=== PATIENT | male | born 1940 | race Caucasian/White ===

== ENCOUNTER 2024-06-26 17:02 | Observation (INO) | payer MEDICARE, BC, SELFPAY ==
[2024-06-26] VITALS (10 sets, daily range): BP systolic 95–129; BP diastolic 55–92; PULSE 70–77; O2SAT 99; BMI 24.5
--- NOTE | 2024-06-26 12:39 | ED.GENMED ---
History of Present Illness
General
Chief Complaint: Fall
Source: patient
Exam Limitations: none
Time Seen by Provider: 06/26/24 12:09
History of Present Illness
History of Present Illness:
83-year-old male with history of Parkinson's not currently anticoagulated presents from home with frequent falls. He fell earlier this week and was admitted to [facility] for 3 days. He was discharged 2 days ago and yesterday fell in the
tub hitting his head. 5 days ago, he fell on top of his and him told by the sons that his suffered a pelvic fracture due to this fall. They both live at home independently. The sons that are in the room are telling me that they have
been looking for placement. Patient denies any injury from yesterday's fall. He denies chest pain hip pain abdominal pain or shortness of breath but does admit to a head strike. He typically uses a walker to ambulate
Phy Exam
Physical Exam
Physical Exam:
General: Well-appearing male no acute respiratory distress
HEENT: Normocephalic atraumatic
Heart: Regular rate and rhythm
Lungs: Clear no wheeze
Musculoskeletal exam: Spine is nontender good range of motion to the upper and lower extremity
Neurologic: Tremor noted consistent with history of Parkinson's alert and oriented otherwise
Course
Orders/Labs/Results
Orders:
Orders
06/26/24 12:33
CT Head W/o Iv Contrast Urgent
Comment:
Reason For Exam: fall
06/26/24 12:40
Complete Blood Count/With Diff Urgent
Comprehensive Metabolic Panel Urgent
Urinalysis Reflex To Culture Urgent
Date Specimen was Collected: 06/26/24
Time Specimen was Collected: 12:37
06/26/24 13:25
PT Consult [Pt Eval And Treat] Urgent
Activity Level: Ambulate
06/26/24 13:41
Case Management Consult ONCE
Case Management Consult: Discharge Planning
Abnormal Lab Results
06/26/24
12:40
RBC 3.36 L 10^6/uL
(4.70-6.10)
Hgb 10.6 L g/dL
(13.0-18.0)
Hct 31.6 L %
(39.0-52.0)
MCH 31.5 H pg
(27.0-31.0)
Absolute Lymphs (auto) 0.6 L 10^3/uL
(1.2-3.4)
Neutrophils % 80.9 H %
(42.2-75.2)
Lymphocytes % 8.9 L %
(20.5-51.1)
BUN 27 H mg/dl
(9-20)
Total Protein 6.0 L g/dl
(6.3-8.2)
Urine Ketones Trace A
(Negative)
Urine Bilirubin 1+ A
(Negative)
06/26/24 12:40
06/26/24 12:40
Vital Signs
Initial and Last Documented VS:
Initial Vital Signs
Temp Pulse Resp BP Pulse Ox
97.8 F 72 18 104/55 97
06/26/24 11:01 06/26/24 11:01 06/26/24 11:01 06/26/24 11:01 06/26/24 11:01
Last Documented Vital Signs
Temp Pulse Resp BP Pulse Ox
97.8 F 71 16 122/69 99
06/26/24 11:01 06/26/24 16:00 06/26/24 16:00 06/26/24 16:00 06/26/24 16:00
MDM/Problems Addressed
Differential Diagnosis Includes:
Frequent falls lives at home currently independently with his who he fell on 1 week ago. Was recently at [facility] and was discharged pending placement in several weeks. He fell no more than 24 hours after being discharged. Family
accompanies patient. He is no longer safe for him to be at home. CT of the head and get labs and urine today. Case management notified
*Critical Care Note
Total Time (30-74mins, 75-104mins- exclusive of procedures): Not Applicable
Update Note
Update Note:
CT head negative. Patient evaluated by physical therapy and case management. Patient on safe for discharge secondary to frequent falls send his main caregiver is also here with an injury to her right hip. Case management tried to place however
there is no movement on the weekend. Will admit to hospital for further evaluation
ED Attending Note
-
Portions of this chart may have been created with voice recognition software.� Occasional wrong word or��sound alike� substitutions may have occurred due to the inherent limitations of voice recognition software.
Discharge Plan
Departure
Patient Disposition: Admit
Date of Disposition: 06/26/24
Time of Disposition: 16:18
Admit to: Med/Surg
Presentation/result/management discussed w/ accepting MD/DO: Hospitalist
Discharge Problem:
Falls
Prescriptions:
No Action
furosemide [Lasix] 40 mg Tablet
40 mg PO DAILY
atorvastatin 40 mg Tablet
40 mg PO DAILY
ferrous sulfate 325 mg (65 mg iron) Tablet
325 mg PO Q48H
aspirin 81 mg Tablet,Chewable
81 mg PO HS
metoprolol succinate 25 mg Tablet Extended Release 24 Hr
25 mg PO DAILY
finasteride 5 mg Tablet
5 mg PO DAILY
cholecalciferol (vitamin D3) [Vitamin D3] 25 mcg (1,000 unit) Tablet
25 mcg PO DAILY
Eliquis 5 mg Tablet
5 mg PO BID
Slow-Mag
1 tab PO HS
meclizine 25 mg Tablet
25 mg PO Q8H PRN (Reason: dizziness)
losartan 25 mg Tablet
25 mg PO DAILY
acetaminophen 500 mg Capsule
500 mg PO Q6H PRN (Reason: pain)
Referrals:
Cachorro Reilly PA-C [Family Provider] -
Interventions
Interventions:
*Risk Screen - Suicide Last Done: 06/26/24 11:01
*General Assessment Last Done: 06/26/24 11:01
*Neglect/Abuse Screening Last Done: 06/26/24 11:01
ED- Fall Risk Assessment Last Done: 06/26/24 11:44
ED-Musculoskeletal Assessment Last Done: 06/26/24 11:44
ED- Neurological Assessment Last Done: 06/26/24 11:44
ED-Skin Assessment Last Done: 06/26/24 11:44
Discharge Date and Time
Print Language: LIBYAN
[2024-06-26 12:55] LABS: % Basophils 0.6 % (0-2); % Eosinophils 0.6 % (0-6); % Immature Granulocytes 0.4 % (0-0.5); % Lymphocytes 8.9 % (20.5-51.1); % Monocytes 8.6 % (1.7-9.3); % Neutrophils 80.9 % (42.2-75.2); Absolute Lymphocytes 0.6 10^3/uL (1.2-3.4); Absolute Monocytes 0.6 10^3/uL (0.1-0.6); Absolute Neutrophils 5.7 10^3/uL (1.4-6.5); Hematocrit 31.6 % (39.0-52.0); Hemoglobin 10.6 g/dL (13.0-18.0); Mean Corp Hgb Conc. 33.5 g/dL (33.0-37.0); Mean Corpuscular Hgb 31.5 pg (27.0-31.0); Nucleated Red Blood Cells % 0 % (-); Platelet Count 146 10^3/uL (130-400); Red Blood Cell Count 3.36 10^6/uL (4.70-6.10)
[2024-06-26 13:09] LABS: Urine Albumin Trace (Neg - Trace); Urine Bilirubin 1+ (Negative); Urine Character Clear (Clear); Urine Color Yellow; Urine Glucose Negative (Negative); Urine Ketone Trace (Negative); Urine Leukocyte Negative (Negative); Urine Nitrite Negative (Negative); Urine Occult Blood Negative (Negative); Urine Specific Gravity 1.025 (<1.030); Urine Urobilinogen Negative (Neg - 1+)
[2024-06-26 13:13] LABS: ALT (SGPT) 23 U/L (0-50); AST (SGOT) 39 U/L (17-59); Albumin 3.7 g/dl (3.5-5.0); Alkaline Phosphatase 93 U/L (38-126); Blood Urea Nitrogen 27 mg/dl (9-20); Calcium 9.6 mg/dl (8.4-10.2); Carbon Dioxide 27 mmol/L (22-30); Chloride 105 mmol/L (98-107); Glucose 98 mg/dl (70-99); Potassium 4.2 mmol/L (3.5-5.1); Sodium 140 mmol/L (135-145); Total Bilirubin 0.9 mg/dl (0.2-1.3); eGFR 59.63
--- NOTE | 2024-06-26 14:30 | CM ---
Addendum entered by Anayeli Piper RN 06/26/24 18:36:
العراقي given.
Addendum entered by Anayeli Piper RN 06/26/24 15:39:
MARISSA spoke with patient's son who is in agreement with placement. As per son, patient was at [facility]. SNF was recommended, but patient declined. Patient lives with who is is primary caregiver, but he fell on patient and she has a
pelvic fracture and will need SNF. Son is agreeable to placement. Son would prefer both patient's be placed in same facility.
Referrals sent via [facility] to [facility], [facility].
Original Note:
MARISSA spoke with patient. He stated that he was at [facility] and left AMA to home. He is now agreeable to placement. Patient requested that I call his son Tai to discuss discharge planning.
--- NOTE | 2024-06-26 16:27 | HPS.HSE ---
Family Physician
-
Family Physician: NENO COLEY PA-C
Chief Complaint
-
falls
History of Present Illness
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
frequent falls. He fell earlier this week and was admitted to [facility] for 3 days. He was discharged 2 days ago yesterday fell in the tub hitting his head. 5 days ago he fell on top of his . Patient denies any injury from
yesterday's fall. He denies chest pain, hip pain abdominal pain or shortness of breath. He normally uses a walker to ambulate.
He denies any dizziness. He states that he was recently diagnosed with Parkinson's disease.
He denies smoking or alcohol use.
Medical History
Past Medical History
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
Past Surgical History: Reports None
Social History
Tobacco: Non-smoker
Alcohol: None
Drug: None
Family History
Family History: Not pertinent
Allergies / Home Medications
Allergies reflects when Allergies were last updated in [employer].
Home Medications with original date entered in [facility]
Allergy/Medication List:
Allergies
Allergy/AdvReac Type Severity Reaction Status Date / Time
No Known Allergies Allergy Verified 06/26/24 11:43
Home Medications
Slow-Mag 1 tab PO HS Muscle spasms 01/20/23
apixaban 5 mg tablet (Eliquis) 5 mg PO BID Blood clot prevention/tx 01/20/23
aspirin 81 mg chewable tablet 81 mg PO HS Blood clot prevention/tx 01/20/23
atorvastatin 40 mg tablet 40 mg PO DAILY Gastrointestinal issue 01/20/23
cholecalciferol (vitamin D3) 25 mcg (1,000 unit) tablet (Vitamin D3) 25 mcg PO DAILY Supplement 01/20/23
ferrous sulfate 325 mg (65 mg iron) tablet 325 mg PO Q48H Supplement 01/20/23
finasteride 5 mg tablet 5 mg PO DAILY Urinary issue 01/20/23
furosemide 40 mg tablet (Lasix) 40 mg PO DAILY Fluid retention/Swelling 01/20/23
losartan 25 mg tablet 25 mg PO DAILY Blood pressure 01/20/23
meclizine 25 mg tablet 25 mg PO Q8H PRN dizziness 01/20/23
metoprolol succinate 25 mg tablet,extended release 24 hr 25 mg PO DAILY Heart Failure 01/20/23
acetaminophen 500 mg capsule 500 mg PO Q6H PRN pain 01/24/23
Review of Systems
-
History Source: Patient
A 12 point ROS was completed and negative except as noted: Yes
Constitutional: Reports No Symptoms
EENT: Reports No Symptoms
Respiratory: Reports No Symptoms
Cardiac: Reports No Symptoms
Abdomen/GI: Reports No Symptoms
: Reports No Symptoms
Musculoskeletal: Reports No Symptoms
Skin: Reports No Symptoms
Neurological: Reports No Symptoms
Endocrine: Reports No Symptoms
Hematologic/Lymphatic: Reports No Symptoms
Psych: Reports No Symptoms
Physical Exam
Vital Signs
Vital Signs
Temp Pulse Resp BP Pulse Ox
97.8 F 71 16 122/69 99
06/26/24 11:01 06/26/24 16:00 06/26/24 16:00 06/26/24 16:00 06/26/24 16:00
Physical Exam
General: Well Developed, Well Nourished and No Apparent Distress
HEENT: NormoCephalic, Moist mucous membranes and Atraumatic
Respiratory: Clear
Cardiac: S1/S2 and Regular Rhythm; No Murmur or Rub
GI: Soft, Non Tender, Non Distended and Normal Bowel Sounds; No Organomegaly
Rectal: Deferred by Provider
Musculoskeletal: No Clubbing, No Cyanosis and No Edema
Skin: No Rash
Neuro: Nonfocal/grossly intact
Laboratory Results
-
06/26/24 12:40
06/26/24 12:40
Laboratory Results
Total Bilirubin 0.9 mg/dl (0.2-1.3) 06/26/24 12:40
AST 39 U/L (17-59) 06/26/24 12:40
ALT 23 U/L (0-50) 06/26/24 12:40
Alkaline Phosphatase 93 U/L (38-126) 06/26/24 12:40
Data Reviewed
-
Lab Data: Labs Reviewed by me
Old Records: Reviewed
Impression/Plan
-
IMPRESSION:
PLAN:
# Frequent falls/ambulatory dysfunction secondary to Parkinson's disease
-Seen by PT and needs placement but case management cannot place today
-CT head shows no acute abnormality
-check orthostatics and consider stopping lasix
Parkinson's disease
-Apparently recently diagnosed
Paroxysmal atrial fibrillation
-Eliquis stopped a month ago
-Continue metoprolol
CAD
-Continue aspirin, statin
Essential hypertension
-Continue losartan
Sigmoid colon cancer status post splenic flexure resection and intracorporeal anastomosis
Memory impairment
Chronic anemia
-Hemoglobin stable
-Continue ferrous sulfate
BPH
-Continue finasteride
Lower extremity edema
-Continue Lasix
Full code
DVT prophylaxis�SCDs
Regular diet
[2024-06-26] MEDS: FEOSOL 325 MG PO (23:00)
[2024-06-26] MEDS: LOW STRENGTH ASPIRIN 81 MG PO (23:00)
[2024-06-27] MEDS: SYNTHROID 25 MCG PO (06:00)
[2024-06-27 06:58] LABS: % Eosinophils 4.8 % (0-6); % Immature Granulocytes 0.2 % (0-0.5); % Lymphocytes 17.2 % (20.5-51.1); % Monocytes 10.5 % (1.7-9.3); % Neutrophils 66.3 % (42.2-75.2); Absolute Eosinophils 0.2 10^3/uL (0-0.7); Absolute Lymphocytes 0.7 10^3/uL (1.2-3.4); Absolute Monocytes 0.4 10^3/uL (0.1-0.6); Absolute Neutrophils 2.8 10^3/uL (1.4-6.5); Hematocrit 30.2 % (39.0-52.0); Mean Corp Hgb Conc. 33.1 g/dL (33.0-37.0); Mean Corpuscular Hgb 31.2 pg (27.0-31.0); Mean Corpuscular Volume 94.1 fL (80.0-94.0); Mean Platelet Volume 10.2 fL (7.4-10.4); Nucleated Red Blood Cells % 0 % (-); Platelet Count 146 10^3/uL (130-400); Red Blood Cell Count 3.21 10^6/uL (4.70-6.10); Red Cell Dist. Width 13.9 % (11.5-14.5); White Blood Cell Count 4.2 10^3/uL (4.8-10.8)
[2024-06-27 07:41] LABS: ALT (SGPT) 25 U/L (0-50); AST (SGOT) 35 U/L (17-59); Albumin 3.4 g/dl (3.5-5.0); Alkaline Phosphatase 88 U/L (38-126); Blood Urea Nitrogen 23 mg/dl (9-20); Calcium 9.2 mg/dl (8.4-10.2); Carbon Dioxide 27 mmol/L (22-30); Chloride 107 mmol/L (98-107); Estimated Creatinine Clearance 55 ml/min; Glucose 92 mg/dl (70-99); Potassium 4.1 mmol/L (3.5-5.1); Sodium 142 mmol/L (135-145); Total Bilirubin 0.7 mg/dl (0.2-1.3); Total Protein 5.5 g/dl (6.3-8.2); eGFR > 60.00
--- NOTE | 2024-06-27 07:55 | W.PN.HOSP.TC ---
Today's Communication/Plan
-
-Discharge
Assessment / Plan
Assessment / Plan
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
from home for frequent falls. He fell in the tub hitting his head 2 days ago and presented to ER. Head CT showed acute intracranial abnormalities. Additionally, he fell earlier this week and was admitted to [facility] for 3 days. He was
discharged 3 days ago. Patient reported he started to have this balance problem for a few months.
Assessment/Plan:
# Frequent falls/ambulatory dysfunction secondary to Parkinson's disease
-Seen by PT
-CT head shows no acute abnormality
-Check orthostatics and stopped lasix
#Parkinson's disease
-Apparently recently diagnosed
-Gradually worsened especially with his balance
-Has a neurologist for follow up
#Paroxysmal atrial fibrillation
-Eliquis stopped a month ago
-Continue metoprolol
#CAD
-Continue aspirin, statin
#Essential hypertension
-Continue losartan
#Chronic anemia
-Hemoglobin stable
-Continue ferrous sulfate
#BPH
-Continue finasteride
#Lower extremity edema
-Continue Lasix
#DVT prophylaxis
�SCDs
#Sigmoid colon cancer status post splenic flexure resection and intracorporeal anastomosis
#Memory impairment
#Code status: Full code
Anticipated Discharge: Today
Subjective/Interval History
-
Date of Service: June 27, 2024
Patient was seen in his bed full oriented, awake and alert. Denies chest pain, sob, abdominal pain , dysuria, head pain and extremity pain during PE.
Objective Data
-
Labs:
Laboratory Results
06/27/24
06:00
WBC 4.2 L
Hgb 10.0 L
Hct 30.2 L
Plt Count 146
Sodium 142
Potassium 4.1
Chloride 107
Carbon Dioxide 27
BUN 23 H
Creatinine 1.0
Glucose 92
Calcium 9.2
Total Bilirubin 0.7
AST 35
ALT 25
Alkaline Phosphatase 88
Vital Signs:
Vital Signs
Temp Pulse Resp BP Pulse Ox
97.9 F 72 16 122/63 98
06/26/24 23:00 06/26/24 23:00 06/26/24 23:00 06/26/24 23:00 06/26/24 23:00
I&O
06/26/24 06/27/24 06/28/24
06:59 06:59 06:59
Intake Total 240 / 240
Output Total 150 / 150
Balance 90 / 90
Physical Exam
-
General: No Apparent Distress, Comfortable and Conversant
HEENT: Normocephalic and Atraumatic
Respiratory: Clear to Auscultation
Cardiac: Regular Rhythm and S1/S2
GI: Soft, Nontender and Nondistended
Musculoskeletal: No Clubbing, No Cyanosis and No Edema
Skin: Warm
Neuro: Awake, Alert, Oriented and AO x 3
Psych: Calm
[2024-06-27 08:18] VITALS: BP 125/68
[2024-06-27] MEDS: TOPROL XL 25 MG PO (09:15)
[2024-06-27] MEDS: LASIX 40 MG PO (09:15)
[2024-06-27] MEDS: SINEMET 25-100 2 TABLET PO ×2 (09:15→20:03)
[2024-06-27] MEDS: LIPITOR 80 MG PO (09:15)
[2024-06-27] MEDS: PACERONE 200 MG PO (09:15)
[2024-06-27] MEDS: PROSCAR 5 MG PO (09:15)
--- NOTE | 2024-06-27 09:43 | W.PN.UPDATE ---
Update Note
Progress Note Update
I saw and evaluated the patient. I reviewed the resident�s note and agree with findings and plan as documented in the resident�s note.
No acute complaints.
Gen: NAD, Awake and alert
Eyes: EOMI, PERRLA, no scleral icterus.
Neck: supple.
CV: RRR, +S1/S2, no m/r/g.
Resp: CTAB, no rales, wheezes, or rhonchi.
Abd: +BS, soft, NT, ND
Skin: No rashes.
Neuro: CN 2-12 intact, non-focal.
Psych: Normal mood and affect.
CT brain: There are no acute intracranial abnormalities. There is moderate diffuse cortical atrophy with mild nonspecific white matter changes as described above.
Frequent falls/ambulatory dysfunction secondary to Parkinson's disease
-Seen by PT and needs placement but case management cannot place today
-CT head shows no acute abnormality
-orthostatics VS POS, stop lasix
Parkinson's disease, recently diagnosed
Paroxysmal atrial fibrillation: Eliquis stopped a month ago, continue metoprolol
CAD: cont ASA/statin/BB
Essential hypertension: Continue losartan/BB
Sigmoid colon cancer s/p splenic flexure resection and intracorporeal anastomosis
Memory impairment
Chronic anemia: Hb stable, cont ferrous sulfate
BPH: Continue finasteride
Lower extremity edema
-Continue Lasix
FULL/Lovenox
No indication for further hospitalization. Medically cleared for discharge. Case management aware.
Total time spent on d/c = 31 min. This included today's physical exam, progress note, review of laboratory and diagnostic data, preparation of discharge documents and prescriptions, and discussions about the pt's hospital course and discharge plan
with the patient and other program medical director involved in the patient's care.
--- NOTE | 2024-06-27 10:09 | W.DCSUMMARY ---
Addendum entered and electronically signed by Fahad Copeland MD 06/27/24 11:00:
Read, reviewed, and agree. See same day progress note for additional details
Original Note:
Discharge Summary
Discharge Data
Date of Admission: 06/26/24
Date of Discharge: 06/27/24
-
Pending Results: No
Additional Pending Results:
Discharging Physician : Fahad Copeland MD
Disposition : SNF
Principal Discharge diagnosis : Recurrent falls, Parkinson's disease
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
Hospital Course : The patient is a 83-year-old male with history of Parkinson's not currently anticoagulated presented to ER on 06/26/24 from home with frequent falls. He fall down and hit his head to the tub 2 days ago at home and was brought to
the ER. He was obtained head CT at admission which showed: No acute intracranial abnormalities and seen moderate diffuse cortical atrophy with mild nonspecific white matter changes. The patient denies any injury from his recent fall. He denies
chest pain, hip pain, extremity pain, abdominal pain or shortness of breath. No signs of infection was found on Lab studies. ( WBC:4.2, No fever, UA: Nonremarkable ). The patient is planned to be discharged today. He has a neurologist at OP
setting to be followed up for his Parkinson. He was not found have orthostatic hypotension. BP of the patient was on lower side since admission which might be contributing to his frequent falls and therefore his Lasix was stopped.
Important imaging findings :
Head CT 06/26/24
FINDINGS:
There are no acute abnormalities.
There is no intracranial hemorrhage.
There is no edema or mass effect to suggest neoplasm.
There are no abnormal extra-axial fluid collections.
There are no focal areas of diminished density to suggest infarct.
There is diffuse cortical atrophy as evidenced by prominence of the CSF spaces.
Additionally, there are patchy areas of low density in the periventricular and subcortical white matter bilaterally. These white matter changes are nonspecific but given the patient's age are most likely ischemic or degenerative in origin. Such
white matter changes are often seen in older individuals and typically do not correlate clinically.
IMPRESSION:
There are no acute intracranial abnormalities.
There is moderate diffuse cortical atrophy with mild nonspecific white matter changes as described above.
Discharge Plan
-
Patient Disposition: Senior Living/SNF
Discharge Diagnosis/Procedures: recurrent falls, Parkinson's disease
Condition: Good
Diet: Regular
Activity: With assistance
Driving Restrictions: No driving
Referrals:
Cachorro Reilly PA-C [Family Provider] - in less than 1 week
Prescriptions:
Continued
ferrous sulfate 325 mg (65 mg iron) Tablet
325 mg PO Q48H
aspirin 81 mg Tablet,Chewable
81 mg PO HS
metoprolol succinate 25 mg Tablet Extended Release 24 Hr
25 mg PO DAILY
finasteride 5 mg Tablet
5 mg PO DAILY
atorvastatin 80 mg tablet
80 mg PO DAILY
amiodarone 200 mg tablet
200 mg PO DAILY
levothyroxine 25 mcg tablet
25 mcg PO DAILY
carbidopa-levodopa 25-100 mg tablet
2 tab PO BID
Discontinued
furosemide [Lasix] 40 mg Tablet
40 mg PO DAILY
Discharge Orders:
Discharge Patient (As Directed); Ordered 06/27/24
Ordered By: Fahad Copeland
Discharge Date and Time
Print Language: TURKISH
--- NOTE | 2024-06-27 11:16 | CM ---
Patient with Hx Parkinsons with Dx Frequent falls/ambulatory dysfunction. Room air. PT recommends skilled rehab.
SNF referrals reviewed; no accepting SNFs at this time.
Phone call to Tomas Ramirez; left message re; referral.
Phone call to Prabhakar Dudley; left message re; referral.
Spoke with patient, and son Tai (cell [phone]); informed them no response yet from SNF referrals. Explained that under Medicare Observation there is no benefit for SNF for rehab, and unsure UR team will change that Obs status to
Inpatient tomorrow. Patient/family doesn't want to private pay for rehab. Son says that neither son have a first floor setup and can take the patient to their house. Advised son to ask [facility] if he can be admitted there sooner
than 07/11/24.
Message to Resident Debi Pierson requesting OT Eval.
Plan follow up with son tomorrow for d/c planning.
[2024-06-27 15:00] VITALS: BP 128/68
[2024-06-27 16:09] VITALS: BP 128/68; PULSE 70; O2SAT 98
[2024-06-27] MEDS: LOVENOX 40 MG SC (17:25)
[2024-06-27] MEDS: LOW STRENGTH ASPIRIN 81 MG PO (20:03)
[2024-06-27 23:46] VITALS: BP 135/80
[2024-06-28] MEDS: SYNTHROID 25 MCG PO (05:35)
[2024-06-28 07:43] VITALS: BP 122/71
[2024-06-28] MEDS: PROSCAR 5 MG PO (09:14)
[2024-06-28] MEDS: SINEMET 25-100 2 TABLET PO ×2 (09:14→20:40)
[2024-06-28] MEDS: LIPITOR 80 MG PO (09:14)
[2024-06-28] MEDS: TOPROL XL 25 MG PO (09:15)
[2024-06-28] MEDS: PACERONE 200 MG PO (09:15)
--- NOTE | 2024-06-28 09:58 | CM ---
Addendum entered by Esme Latham 06/28/24 16:59:
With son Tai's permission, clinicals faxed to Jeannette at [facility] [phone].
Financial completed by elena Lujan and CM sent via secure email to Lauryn at [facility].
Addendum entered by Esme Latham 06/28/24 14:25:
TC to patients elena Lujan with patient and spouse permission.
Tai agreeable to to filling out financial forms for [facility].
Forms emailed to [email or web address].
Plan: skilled rehab once financials completed, reviewed and accepted.
Addendum entered by Esme Latham 06/28/24 11:12:
Spoke with [facility], financial forms would need to be completed prior to admission and family may have to pay upfront charges for 1-2 weeks.
[facility] unable to accept, and [facility] does not have 2 beds available at this time ( and spouse).
Addendum entered by Esme Latham 06/28/24 11:11:
Spoke with patient bedside.
per patient okay to reach out to son.
Left VM for son Philip/secondary contact. (spouse is primary)
Original Note:
TC to [facility] Case management, Patient was admitted to [facility] 06/22/24, d/c 06/24/24.
CM reached out to [facility] to see if patient qualifies snf waiver, patient is not one of theirs.
PT recommending skilled rehab, family aware if would need to be private pay.
CM will reach out to family.
[2024-06-28 10:56] VITALS: BP 105/64; BP 111/60; BP 113/67
[2024-06-28 11:10] VITALS: BP 105/64; BP 113/67
[2024-06-28 15:06] VITALS: BP 100/58
--- NOTE | 2024-06-28 16:03 | W.PN.HOSP.TC ---
Today's Communication/Plan
-
dc planning - cm aware
Assessment / Plan
Assessment / Plan
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
from home for frequent falls. He fell in the tub hitting his head 2 days ago and presented to ER. Head CT showed acute intracranial abnormalities. Additionally, he fell earlier this week and was admitted to [facility] for 3 days. He was
discharged 3 days ago. Patient reported he started to have this balance problem for a few months.
Assessment/Plan:
# Frequent falls/ambulatory dysfunction secondary to Parkinson's disease
-Seen by PT
-CT head shows no acute abnormality
-Check orthostatics and stopped lasix
#Parkinson's disease
-Apparently recently diagnosed
-Gradually worsened especially with his balance
-Has a neurologist for follow up
#Paroxysmal atrial fibrillation
-Eliquis stopped a month ago
-Continue metoprolol
-Amiodarone
#CAD
-Continue aspirin, statin
#Essential hypertension
-Continue losartan
#Chronic anemia
-Hemoglobin stable
-Continue ferrous sulfate
#BPH
-Continue finasteride
#Lower extremity edema
-Holding Lasix - monitor outpatient
#DVT prophylaxis
-Lovenox
#Sigmoid colon cancer status post splenic flexure resection and intracorporeal anastomosis
#Memory impairment
#Code status: Full code
Anticipated Discharge: Within 24 hours
Subjective/Interval History
-
Date of Service: June 28, 2024
no acute events
Objective Data
-
Vital Signs:
Vital Signs
Temp Pulse Resp BP Pulse Ox
97.4 F 71 17 100/58 99
06/28/24 15:06 06/28/24 15:06 06/28/24 15:06 06/28/24 15:06 06/28/24 15:06
I&O
06/27/24 06/28/24 06/29/24
06:59 06:59 06:59
Intake Total 240 / 240 1590 / 1590
Output Total 150 / 150 575 / 575
Balance 90 / 90 1015 / 1015
Review of Systems
-
History Source: Patient
All other systems: Not reviewed unless documented
Physical Exam
-
General: No Apparent Distress, Comfortable and Conversant
HEENT: Normocephalic and Atraumatic
Respiratory: Clear to Auscultation
Cardiac: Regular Rhythm and S1/S2
GI: Soft, Nontender and Nondistended
Musculoskeletal: No Clubbing, No Cyanosis and No Edema
Skin: Warm
Neuro: Awake, Alert, Oriented and AO x 3
Psych: Calm
Data Reviewed
-
CT Scan: Image personally visualized and interpreted and Report Reviewed by me
Labs: Labs Reviewed by me
[2024-06-28] MEDS: LOVENOX 40 MG SC (17:20)
[2024-06-28] MEDS: FEOSOL 325 MG PO (20:40)
[2024-06-28] MEDS: LOW STRENGTH ASPIRIN 81 MG PO (20:40)
[2024-06-28 23:30] VITALS: BP 113/62
[2024-06-29] MEDS: SYNTHROID 25 MCG PO (05:13)
[2024-06-29 07:56] VITALS: BP 103/62
[2024-06-29] MEDS: LIPITOR 80 MG PO (08:29)
[2024-06-29] MEDS: PACERONE 200 MG PO (08:29)
[2024-06-29] MEDS: SINEMET 25-100 2 TABLET PO ×2 (08:29→20:04)
[2024-06-29] MEDS: PROSCAR 5 MG PO (08:29)
--- NOTE | 2024-06-29 10:47 | CM ---
Addendum entered by Lesley Hidalgo 06/29/24 16:26:
MARISSA received call from son, Tai, reports he spoke with Lauryn at [facility], will plan to arrive at Hospital tomorrow around 9:30 a.m. and transport patient to [facility], [place], private pay. TT to Hospitalist with update.
Addendum entered by Lesley Hidalgo 06/29/24 15:25:
CM spoke with son, Tai, discussed cost of private pay for [facility] short term rehab ($15,000 for patient and spouse). Son inquiring what cost would be if only patient went to [facility], [place], cost $7,700. Son provided with Lauryn ([facility] Admissions)
contact number [phone] to discuss financial. Son reports [facility] came to evaluate patient and patients today, can accept at [facility] on Friday.
Plan; [facility] private pay, likely tomorrow.
Original Note:
CM faxed financials to [facility] for short term rehab, , under review. CM will update family once determined if [facility] is able to offer patient and patient spouse a bed. Plan transition to [facility] after short term rehab, this
Friday. CM will continue to follow for all discharge planning needs.
Plan; financials under review at [facility], awaiting acceptance.
[2024-06-29] MEDS: TOPROL XL 25 MG PO (12:53)
--- NOTE | 2024-06-29 13:57 | W.PN.HOSP.TC ---
Today's Communication/Plan
-
dc planning - cm aware
Assessment / Plan
Assessment / Plan
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
from home for frequent falls. He fell in the tub hitting his head 2 days ago and presented to ER. Head CT showed acute intracranial abnormalities. Additionally, he fell earlier this week and was admitted to [facility] for 3 days. He was
discharged 3 days ago. Patient reported he started to have this balance problem for a few months.
Assessment/Plan:
# Frequent falls/ambulatory dysfunction secondary to Parkinson's disease
-Seen by PT
-CT head shows no acute abnormality
-Check orthostatics and stopped lasix
#Parkinson's disease
-Apparently recently diagnosed
-Gradually worsened especially with his balance
-Has a neurologist for follow up
#Paroxysmal atrial fibrillation
-Eliquis stopped a month ago
-Continue metoprolol
-Amiodarone
#CAD
-Continue aspirin, statin
#Essential hypertension
-Continue losartan
#Chronic anemia
-Hemoglobin stable
-Continue ferrous sulfate
#BPH
-Continue finasteride
#Lower extremity edema
-Holding Lasix - monitor outpatient
#DVT prophylaxis
-Lovenox
#Sigmoid colon cancer status post splenic flexure resection and intracorporeal anastomosis
#Memory impairment
#Code status: Full code
Anticipated Discharge: Within 24 hours
Subjective/Interval History
-
Date of Service: June 29, 2024
No acute events overnight
Objective Data
-
Vital Signs:
Vital Signs
Temp Pulse Resp BP Pulse Ox
97.6 F 72 18 115/62 98
06/29/24 07:56 06/29/24 12:53 06/29/24 07:56 06/29/24 12:53 06/29/24 07:56
I&O
06/28/24 06/29/24 06/30/24
06:59 06:59 06:59
Intake Total 1590 / 1590 420 / 420
Output Total 575 / 575 400 / 400
Balance 1015 / 1015
Review of Systems
-
History Source: Patient
All other systems: Not reviewed unless documented
Data Reviewed
-
CT Scan: Image personally visualized and interpreted and Report Reviewed by me
Labs: Labs Reviewed by me
[2024-06-29 15:48] VITALS: BP 111/64
[2024-06-29] MEDS: LOVENOX 40 MG SC (17:03)
[2024-06-29] MEDS: LOW STRENGTH ASPIRIN 81 MG PO (21:04)
[2024-06-29 23:21] VITALS: BP 120/62
[2024-06-30] MEDS: SYNTHROID 25 MCG PO (06:00)
[2024-06-30 07:25] VITALS: BP 120/62
--- NOTE | 2024-06-30 08:32 | CM ---
CM reviewed chart, patient for discharge today to [facility], private pay. Son will provide transportation to facility this morning. CM will continue to follow for all discharge planning needs.
Plan; [facility], private pay, son to transport.
[facility]:
Report: [phone]
[2024-06-30] MEDS: SINEMET 25-100 2 TABLET PO (09:27)
[2024-06-30] MEDS: PACERONE 200 MG PO (09:27)
[2024-06-30] MEDS: PROSCAR 5 MG PO (09:27)
[2024-06-30] MEDS: LIPITOR 80 MG PO (09:27)
[2024-06-30] MEDS: TOPROL XL 25 MG PO (09:28)
[2024-06-30 11:16] LABS: Hemoglobin 11.7 g/dL (13.0-18.0); Mean Corp Hgb Conc. 32.5 g/dL (33.0-37.0); Mean Corpuscular Hgb 30.9 pg (27.0-31.0); Mean Platelet Volume 10.1 fL (7.4-10.4); Platelet Count 203 10^3/uL (130-400); Red Blood Cell Count 3.79 10^6/uL (4.70-6.10); Red Cell Dist. Width 13.9 % (11.5-14.5); White Blood Cell Count 6.8 10^3/uL (4.8-10.8)
--- NOTE | 2024-06-30 11:25 | W.PN.HOSP.TC ---
Addendum entered and electronically signed by Corona Marsh MD 06/30/24 18:00:
[id number]
Original Note:
Today's Communication/Plan
-
stop lasix; may need midodrine
f/u pcp, neurology outpatient
Assessment / Plan
Assessment / Plan
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
from home for frequent falls. He fell in the tub hitting his head 2 days ago and presented to ER. Head CT showed acute intracranial abnormalities. Additionally, he fell earlier this week and was admitted to [facility] for 3 days. He was
discharged 3 days ago. Patient reported he started to have this balance problem for a few months.
Assessment/Plan:
# Frequent falls/ambulatory dysfunction secondary to Parkinson's disease
-Seen by PT
-CT head shows no acute abnormality
- stopped lasix ; may need midodrine in the future
#Parkinson's disease
-Apparently recently diagnosed
-Gradually worsened especially with his balance
-Has a neurologist for follow up
#Paroxysmal atrial fibrillation
-Eliquis stopped a month ago
-Continue metoprolol
-Amiodarone
#CAD
-Continue aspirin, statin
#Essential hypertension
-Continue losartan
#Chronic anemia
-Hemoglobin stable
-Continue ferrous sulfate
#BPH
-Continue finasteride
#Lower extremity edema
-Holding Lasix - monitor outpatient; may need to restart along with starting midodrine
#DVT prophylaxis
-Lovenox
#Sigmoid colon cancer status post splenic flexure resection and intracorporeal anastomosis
#Memory impairment
#Code status: Full code
More than 30 minutes spent in discharge including
Final examination of the patient
Summarizing hospital stay
Instructions for continuing care to all relevant caregivers
Preparation of discharge records, prescriptions, and referral forms
Total time spent (35 in minutes):
Anticipated Discharge: Today
Subjective/Interval History
-
Date of Service: June 30, 2024
No acute events overnight
Objective Data
-
Labs:
Laboratory Results
06/30/24
08:57
WBC 6.8
Hgb 11.7 L
Hct 36.0 L
Plt Count 203 D
Vital Signs:
Vital Signs
Temp Pulse Resp BP Pulse Ox
97.7 F 72 17 120/62 96
06/30/24 07:25 06/30/24 09:27 06/30/24 07:25 06/30/24 09:27 06/30/24 08:07
I&O
06/29/24 06/30/24 07/01/24
06:59 06:59 06:59
Intake Total 420 / 420 840 / 840
Output Total 400 / 400 450 / 450
Balance 20 / 20 390 / 390
Review of Systems
-
History Source: Patient
All other systems: Not reviewed unless documented
Physical Exam
-
General: No Apparent Distress, Comfortable and Conversant
HEENT: Normocephalic and Atraumatic
Respiratory: Clear to Auscultation
Cardiac: Regular Rhythm and S1/S2
GI: Soft, Nontender and Nondistended
Musculoskeletal: No Clubbing, No Cyanosis and No Edema
Skin: Warm
Neuro: Awake, Alert, Oriented and AO x 3
Psych: Calm
Data Reviewed
-
CT Scan: Image personally visualized and interpreted and Report Reviewed by me
Labs: Labs Reviewed by me
--- NOTE | 2024-06-30 11:28 | W.DS.TRANS ---
DC Summary - Audio Video Tech
-
Discharge Instructions:
Discharge Diagnosis/Procedures recurrent falls, Parkinson's disease
Diet Regular
Activity With assistance
Driving Restrictions No driving
Instructions:
Stand-Alone Forms:
Changes to Home Medications: Yes
Discharge Medications:
DC Medications w/original date entered in [facility]
aspirin 81 mg chewable tablet 81 mg PO HS Blood clot prevention/tx 01/20/23
ferrous sulfate 325 mg (65 mg iron) tablet 325 mg PO Q48H Supplement 01/20/23
finasteride 5 mg tablet 5 mg PO DAILY Urinary issue 01/20/23
metoprolol succinate 25 mg tablet,extended release 24 hr 25 mg PO DAILY Blood Pressure 01/20/23
amiodarone 200 mg tablet 200 mg PO DAILY Heart Disease/Condition 06/26/24
atorvastatin 80 mg tablet 80 mg PO DAILY High Cholesterol 06/26/24
carbidopa 25 mg-levodopa 100 mg tablet 2 tab PO BID Neurological Condition 06/26/24
levothyroxine 25 mcg tablet 25 mcg PO DAILY Thyroid 06/26/24
Home Medication Changes
stop furosemide
Pending Results: No
== END 2024-06-30 10:28 ==
LOC: 4 WEST ACU 17:02
PROVIDERS: Physician Assistant; ADMITTING PHYSICIAN Hospitalist; ATTENDING PHYSICIAN Internal Medicine; EMERGENCY PHYSICIAN Emergency Medicine; FAMILY PHYSICIAN Physician Assistant Medical
DX: R29.6 Repeated falls (principal); G20.A1 Parkinson's disease without dyskinesia, without mention of fluctuations; W18.2XXA Fall in (into) shower or empty bathtub, initial encounter; Y93.E1 Activity, personal bathing and showering; Y92.002 Bathroom of unspecified non-institutional (private) residence as the place of occurrence of the external cause; I95.1 Orthostatic hypotension; Z91.81 History of falling; R60.0 Localized edema; I48.0 Paroxysmal atrial fibrillation; I10 Essential (primary) hypertension; I25.10 Atherosclerotic heart disease of native coronary artery without angina pectoris; R41.3 Other amnesia; D64.9 Anemia, unspecified; N40.0 Benign prostatic hyperplasia without lower urinary tract symptoms; G31.9 Degenerative disease of nervous system, unspecified; Z75.1 Person awaiting admission to adequate facility elsewhere; Z79.82 Long term (current) use of aspirin; Z79.01 Long term (current) use of anticoagulants; Z85.038 Personal history of other malignant neoplasm of large intestine; Z90.49 Acquired absence of other specified parts of digestive tract
CPT/HCPCS: 70450; 80053; 81003; 85025; 85027; 97112; 97116; 97167; 97530; 99284; G0378

== ENCOUNTER 2024-09-08 11:45 | Emergency (ER) | payer MEDICARE, BC, SELFPAY ==
[2024-09-08 11:50] VITALS: BP 115/54
--- NOTE | 2024-09-08 13:14 | ED.GENMED ---
History of Present Illness
General
Chief Complaint: Head Injury
Source: patient, ambulance crew and senior living
Exam Limitations: none
Time Seen by Provider: 09/08/24 13:08
Nursing documentation reviewed up to this point in time: agreed with
History of Present Illness
History of Present Illness:
Patient presents to ED from senior living after falling and hitting the back of his head this morning. Patient denies loss of consciousness. Denies blurred vision. Denies dizziness. Denies headache. Patient also has superficial skin tear of his
left forearm, which occurred during the fall. Patient otherwise has no chest pain, abdominal pain, nor back pain. Denies loss of sensation or weakness. Patient unfortunately states that he does fall frequently, due to balance issues.
Review of Systems
Review of Systems
Allergies reviewed?: Yes
All Other Systems: ROS reviewed and negative except as documented in HPI and ROS
Constitutional: Reports no symptoms
Respiratory: Reports no symptoms
Cardiac: Reports no symptoms; Denies palpitations or syncope
ABD/GI: Reports no symptoms; Denies nausea or vomiting
Musculoskeletal: Reports no symptoms
Skin: Reports other (Skin tear)
Neurological: Reports no symptoms; Denies dizzy, headache or weakness
Phy Exam
Physical Exam
Physical Exam:
Physical Exam
General: no apparent distress, not acutely ill. afebrile.
Head: nc/at. eomi
Neck: supple. normal range of motion
Heart: s1/s2 regular rate and rhythm, no murmur. equal radial pulses.
Lungs: no acute respiratory distress. clear bilaterally. chest wall nontender to palpation.
Abdomen: normal bowel sounds. not tender.
Neuro: alert and oriented. no focal neurological deficits
Skin: superficial skin tear noted over left mid-forearm, without active bleeding.
Psychiatric: well kept. interactive and cooperative
Extremities: no edema. no calf tenderness.
Course
Orders/Labs/Results
Orders:
Orders
09/08/24 11:51
CT Head W/o Iv Contrast Urgent
Comment:
Reason For Exam: head injury
Vital Signs
Initial and Last Documented VS:
Initial Vital Signs
Temp Pulse Resp BP Pulse Ox
98.2 F 70 18 115/54 97
09/08/24 11:50 09/08/24 11:50 09/08/24 11:50 09/08/24 11:50 09/08/24 11:50
Last Documented Vital Signs
Temp Pulse Resp BP Pulse Ox
98.2 F 62 18 120/77 98
09/08/24 11:50 09/08/24 15:45 09/08/24 15:45 09/08/24 15:45 09/08/24 15:45
MDM/Problems Addressed
MDM/Problems Addressed:
CT head: NAD.
Local wound care administered to forearm wound. No indication for suture placement. Patient otherwise is afebrile, hemodynamically stable, and neurologically intact, at time of discharge, back to senior living.
*Critical Care Note
Total Time (30-74mins, 75-104mins- exclusive of procedures): Not Applicable
ED Attending Note
-
Portions of this chart may have been created with voice recognition software.� Occasional wrong word or��sound alike� substitutions may have occurred due to the inherent limitations of voice recognition software.
Discharge Plan
Departure
Patient Disposition: Home (Routine Discharge)
Date of Disposition: 09/08/24
Time of Disposition: 13:18
Patient with high blood pressure during this ER visit?: No
Discharge Problem:
Head injury, Skin tear
Instructions: Wound Care (DC), Head Injury in Adults (DC)
Prescriptions:
No Action
ferrous sulfate 325 mg (65 mg iron) Tablet
325 mg PO Q48H
aspirin 81 mg Tablet,Chewable
81 mg PO HS
metoprolol succinate 25 mg Tablet Extended Release 24 Hr
25 mg PO DAILY
finasteride 5 mg Tablet
5 mg PO DAILY
atorvastatin 80 mg tablet
80 mg PO DAILY
amiodarone 200 mg tablet
200 mg PO DAILY
levothyroxine 25 mcg tablet
25 mcg PO DAILY
carbidopa-levodopa 25-100 mg tablet
2 tab PO BID
Activity Restrictions/Additional Instructions:
As discussed, you are being discharged back to senior living for continual care. In ED, CT head did not reveal any abnormal findings.
Interventions
Interventions:
*Risk Screen - Suicide Last Done: 09/08/24 11:50
*General Assessment Last Done: 09/08/24 11:50
*Neglect/Abuse Screening Last Done: 09/08/24 11:50
ED- Fall Risk Assessment Last Done: 09/08/24 16:09
*ED COVID-19 Vaccine History Last Done: 09/08/24 11:50
*Nursing Disposition Last Done: 09/08/24 16:09
ED- Neurological Assessment Last Done: 09/08/24 13:24
ED-Skin Assessment Last Done: 09/08/24 13:24
Discharge Date and Time
Discharge Date/Time: 09/08/24 16:00
Print Language: AMERICAN
[2024-09-08 15:45] VITALS: BP 120/77
== END 2024-09-08 16:00 | disposition home or self-care (01) ==
LOC: EMR 11:45
PROVIDERS: EMERGENCY PHYSICIAN Emergency Medicine; FAMILY PHYSICIAN Nurse Practitioner Family
DX: S09.90XA Unspecified injury of head, initial encounter (principal); S51.812A Laceration without foreign body of left forearm, initial encounter; W18.2XXA Fall in (into) shower or empty bathtub, initial encounter; Y93.E1 Activity, personal bathing and showering; Y92.129 Unspecified place in nursing home as the place of occurrence of the external cause; I25.10 Atherosclerotic heart disease of native coronary artery without angina pectoris; I10 Essential (primary) hypertension; E78.5 Hyperlipidemia, unspecified; R29.6 Repeated falls; Z79.82 Long term (current) use of aspirin; Z85.46 Personal history of malignant neoplasm of prostate; Z85.038 Personal history of other malignant neoplasm of large intestine
CPT/HCPCS: 99284; 70450

== ENCOUNTER 2024-10-21 08:10 | Emergency (ER) | payer MEDICARE, BC, SELFPAY ==
[2024-10-21 08:11] VITALS: BP 121/71
[2024-10-21 08:14] VITALS: BMI 28.2
--- NOTE | 2024-10-21 08:54 | ED.GENMED ---
History of Present Illness
General
Chief Complaint: Fall
Source: patient
Exam Limitations: none
Time Seen by Provider: 10/21/24 08:13
History of Present Illness
History of Present Illness:
Patient lost his balance and fell. Hit his head. Skin tear to the right arm. No LOC no syncope no chest pain shortness of breath unusual headache neck pain abdominal pain or any other complaints. Last tetanus is unknown. This occurred about an
hour ago. Patient has frequent equilibrium issues.
Past History
Past History
ED Past Medical History: Arrthythmia, CAD, CHF, HTN, Hypercholesterolemia and Other (Chronic balance issues)
ED Past Surgical History: Cardiac (CABG/ICD)
Review of Systems
Review of Systems
All Other Systems: Not applicable
Respiratory: Reports no symptoms
Cardiac: Reports no symptoms
Phy Exam
Physical Exam
Physical Exam:
TRAUMA EXAM:
VITAL SIGNS: Vital signs reviewed, cooperative
DISTRESS: No active disease
EYES: Pupils reactive, no orbital trauma
NOSE: No deformity or epistaxis
FACE AND SCALP: 3 cm left eyebrow laceration
NECK: Supple nontender
BACK: Back nontender, pelvis stable to compression
RESPIRATORY: No distress, breath sounds normal, no tender chest wall
CARDIAC: No murmur, pulses equal and strong. Pacemaker left upper chest wall
ABDOMEN: Soft nontender bowel sounds normal
SKIN: Left eyebrow laceration above. Superficial skin tear to the right arm. 1 cm laceration at the volar aspect of the left thumb at the base of the first metacarpal
EXTREMITIES: Nontender motor or sensory neurovascular intact
NEUROLOGICAL: Alert, oriented, no motor deficits
PSYCH: Mood affect normal
Course
Orders/Labs/Results
Orders:
Orders
10/21/24 08:29
Tetanus/Diphth/Acelpertussis [Adacel] 0.5 ml IM .ONCE ONE
10/21/24 08:30
CT Cervical Spine W/o Iv Contr Urgent
Comment:
Reason For Exam: trauma. Left forehead trauma
CT Head W/o Iv Contrast Urgent
Comment:
Reason For Exam: trauma. Left forehead trauma
Cardiac Monitoring- Treatment ONCE
Vital Signs
Initial and Last Documented VS:
Initial Vital Signs
Temp Pulse Resp BP Pulse Ox
98.1 F 70 18 121/71 100
10/21/24 08:11 10/21/24 08:11 10/21/24 08:11 10/21/24 08:11 10/21/24 08:11
Last Documented Vital Signs
Temp Pulse Resp BP Pulse Ox
98.1 F 70 18 130/71 97
10/21/24 08:11 10/21/24 11:16 10/21/24 11:16 10/21/24 11:16 10/21/24 11:16
Procedures
Laceration Closure
Left Lower Face:
Status of Wound: clean
Size of Wound in cm: 3
Description of Wound Edges: sharp
Preparation: cleaned with saline and cleaned with Betadine
Anesthesia: 1% Lidocaine with epi
Revision/Debridement: routine- no revision
Wound exploration: explored to base- no FB
Type of Closure: single layer closure
Skin Closure Material: 5-0 nylon
Number of sutures: 8
Left Volar Hand:
Status of Wound: clean
Size of Wound in cm: 1
Description of Wound Edges: sharp
Preparation: cleaned with saline and cleaned with Betadine
Anesthesia: 1% Lidocaine with epi
Revision/Debridement: routine- no revision
Wound exploration: explored to base- no FB and no tendon involvement
Type of Closure: single layer closure
Skin Closure Material: 5-0 nylon
Number of sutures: 2
MDM/Problems Addressed
Differential Diagnosis Includes:
This sounds like a balance issue. Low suspicion for syncope. Will interrogate the pacemaker however. No other trauma except for superficial injuries. However based on age and mechanism will CT head and cervical spine. No other indication for
bony radiologic testing
*Radiology
Radiology exam reviewed: radiology read reviewed (No acute findings)
*Pulse Oximetry
Patient hypoxic: no
*Critical Care Note
Total Time (30-74mins, 75-104mins- exclusive of procedures): Not Applicable
Data Reviewed
Review of Other/Old Records Reveals: Labs, Records and Testing
Update Note
Update Note:
Has remained stable. Interrogation normal. Discharged to follow-up
ED Attending Note
-
Portions of this chart may have been created with voice recognition software.� Occasional wrong word or��sound alike� substitutions may have occurred due to the inherent limitations of voice recognition software.
Discharge Plan
Departure
Patient Disposition: Home (Routine Discharge)
Date of Disposition: 10/21/24
Time of Disposition: 10:36
Patient with high blood pressure during this ER visit?: Yes
Discharge Problem:
Falls, Head injury, Left eyebrow laceration, Left hand laceration, Skin tear right arm
Instructions: Head Injury in Adults (DC), Laceration Repair With Stitches (DC), Skin Abrasions (DC), BLOOD PRESSURE
Prescriptions:
No Action
ferrous sulfate 325 mg (65 mg iron) Tablet
325 mg PO Q48H
aspirin 81 mg Tablet,Chewable
81 mg PO HS
metoprolol succinate 25 mg Tablet Extended Release 24 Hr
25 mg PO DAILY
finasteride 5 mg Tablet
5 mg PO DAILY
atorvastatin 80 mg tablet
80 mg PO DAILY
amiodarone 200 mg tablet
200 mg PO DAILY
levothyroxine 25 mcg tablet
25 mcg PO DAILY
carbidopa-levodopa 25-100 mg tablet
2 tab PO BID
Referrals:
Nessa Garner CRNP [Family Provider] - Follow up in 2-3 days
Activity Restrictions/Additional Instructions:
Suture removal in about a week
Interventions
Interventions:
*Nursing Disposition Last Done: 10/21/24 12:17
ED-Musculoskeletal Assessment Last Done: 10/21/24 08:14
ED- Neurological Assessment Last Done: 10/21/24 08:14
ED-Skin Assessment Last Done: 10/21/24 08:14
Discharge Date and Time
Discharge Date/Time: 10/21/24 12:19
Print Language: NAURUAN
[2024-10-21] MEDS: ADACEL 0.5 ML IM (09:48)
[2024-10-21 10:11] VITALS: BP 122/69
[2024-10-21 11:16] VITALS: BP 130/71
== END 2024-10-21 12:19 | disposition home or self-care (01) ==
LOC: EMR 08:10
PROVIDERS: EMERGENCY PHYSICIAN Emergency Medicine; FAMILY PHYSICIAN Nurse Practitioner Family
DX: S09.90XA Unspecified injury of head, initial encounter (principal); S01.112A Laceration without foreign body of left eyelid and periocular area, initial encounter; S61.412A Laceration without foreign body of left hand, initial encounter; S51.811A Laceration without foreign body of right forearm, initial encounter; W18.39XA Other fall on same level, initial encounter; Z23 Encounter for immunization; I25.10 Atherosclerotic heart disease of native coronary artery without angina pectoris; I11.0 Hypertensive heart disease with heart failure; I50.9 Heart failure, unspecified; E78.00 Pure hypercholesterolemia, unspecified; Z95.1 Presence of aortocoronary bypass graft; Z95.810 Presence of automatic (implantable) cardiac defibrillator; Z79.82 Long term (current) use of aspirin
CPT/HCPCS: 99284; 93289; 12001; 90471; 70450; 72125; 90715

== ENCOUNTER 2024-10-22 17:29 | Emergency (ER) | payer MEDICARE, BC, SELFPAY ==
[2024-10-22 17:36] VITALS: BP 148/77
--- NOTE | 2024-10-22 17:42 | ED.GENMED ---
History of Present Illness
General
Chief Complaint: Skin Surface Trauma
Source: patient
Exam Limitations: none
Time Seen by Provider: 10/22/24 17:41
Nursing documentation reviewed up to this point in time: agreed with
History of Present Illness
History of Present Illness:
The patient is a pleasant 83-year-old man who tripped and fell yesterday, suffering multiple lacerations. He was evaluated in our emergency department yesterday. Patient was encouraged to return to the emergency department due to a skin tear of
his right forearm and concerns that ' he did not look good'. Patient denies all complaints including fevers, chills, skin redness and any discharge from the right forearm wound. Patient complains of minimal pain. Bleeding is well-controlled.
Past History
Past History
ED Past Medical History: Arrthythmia, CAD, CHF, HTN, Hypercholesterolemia and Other (Chronic balance issues)
ED Past Surgical History: Cardiac (CABG/ICD)
Social History
Tobacco: Other
Alcohol: Other
Drug: None
Personal: Other
Living: other ([facility])
Employment: Retired
Family History
Family History: Other
Review of Systems
Review of Systems
Allergies reviewed?: Yes
All Other Systems: ROS reviewed and negative except as documented in HPI and ROS
Constitutional: Reports no symptoms
EENT: Reports no symptoms
Respiratory: Reports no symptoms
Cardiac: Reports no symptoms
ABD/GI: Reports no symptoms
: Reports no symptoms
Musculoskeletal: Reports no symptoms
Skin: Reports other
Neurological: Reports no symptoms
Endocrine: Reports no symptoms
Hematologic/Lymphatic: Reports no symptoms
Psychiatric: Reports no symptoms
Phy Exam
Physical Exam
Physical Exam:
Physical Exam
General: no apparent distress, not acutely ill. Well appearing, smiling and conversational
Neck: supple.
Heart: s1/s2 regular rate and rhythm,
Lungs: no acute respiratory distress.
Abdomen: Soft, nontender
Neuro: alert and oriented. no focal neurological deficits
Skin: Skin tear right forearm. No active bleeding. No drainage. No skin erythema.
Psychiatric: well kept. interactive and cooperative
Extremities: No bony tenderness or deformity of upper or lower extremity
Course
Vital Signs
Initial and Last Documented VS:
Initial Vital Signs
Temp Pulse Resp BP Pulse Ox
98.7 F 71 16 148/77 99
10/22/24 17:36 10/22/24 17:36 10/22/24 17:36 10/22/24 17:36 10/22/24 17:36
Last Documented Vital Signs
Temp Pulse Resp BP Pulse Ox
98.7 F 71 16 148/77 99
10/22/24 17:36 10/22/24 17:36 10/22/24 17:36 10/22/24 17:36 10/22/24 17:36
MDM/Problems Addressed
Differential Diagnosis Includes:
Skin tear wound, infected skin wound, bleeding wound
MDM/Problems Addressed:
Patient presents with acute skin tear from fall
*Pulse Oximetry
Patient hypoxic: no
*EKG
Interpreted by ED Provider?: NA
*Re Examiner Interpretation
Rate: Re Examiner- N/A
*Critical Care Note
Total Time (30-74mins, 75-104mins- exclusive of procedures): Not Applicable
Data Reviewed
Review of Other/Old Records Reveals: Radiology Studies (CT head reviewed from yesterday. Shows no acute abnormality)
Source: patient and previous hospital records
Patient Management
Social determinants of health affecting care: Living situation and Strong social support
Escalation/DeEscalation of care consider admission/obs:
Patient appears well and comfortable. Right forearm skin tear does not appear infected and is not actively bleeding. There is no skin to approximate, therefore, we will apply antibiotic ointment and nonadherent dressing and encourage daily
changing of dressing until scar tissue starts to form.
ED Attending Note
-
Portions of this chart may have been created with voice recognition software.� Occasional wrong word or��sound alike� substitutions may have occurred due to the inherent limitations of voice recognition software.
Discharge Plan
Departure
Date of Disposition: 10/22/24
Time of Disposition: 17:45
Patient with high blood pressure during this ER visit?: Yes
Condition: Good
Covid-19: Not Applicable
Instructions: Wound care - ED discharge instructions, BLOOD PRESSURE
Prescriptions:
No Action
ferrous sulfate 325 mg (65 mg iron) Tablet
325 mg PO Q48H
aspirin 81 mg Tablet,Chewable
81 mg PO HS
metoprolol succinate 25 mg Tablet Extended Release 24 Hr
25 mg PO DAILY
finasteride 5 mg Tablet
5 mg PO DAILY
atorvastatin 80 mg tablet
80 mg PO DAILY
amiodarone 200 mg tablet
200 mg PO DAILY
levothyroxine 25 mcg tablet
25 mcg PO DAILY
carbidopa-levodopa 25-100 mg tablet
2 tab PO BID
Activity Restrictions/Additional Instructions:
Apply antibiotic ointment and a nonadhesive dressing once a day to the patient's right forearm wound. Continue to do this once a day, every day, until scar tissue starts to form. There is no skin left at this time to further close wound. It will
heal on its own with a scab and scar tissue
Interventions
Interventions:
*Risk Screen - Suicide Last Done: 10/22/24 17:36
*General Assessment Last Done: 10/22/24 17:36
*Neglect/Abuse Screening Last Done: 10/22/24 17:36
*Nursing Disposition Last Done: 10/22/24 17:54
ED-Skin Assessment Last Done: 10/22/24 17:52
Discharge Date and Time
Print Language: OMANI
== END 2024-10-22 20:31 ==
LOC: EMR 17:29
PROVIDERS: EMERGENCY PHYSICIAN Emergency Medicine; FAMILY PHYSICIAN Nurse Practitioner Family
DX: S51.811A Laceration without foreign body of right forearm, initial encounter (principal); W01.0XXA Fall on same level from slipping, tripping and stumbling without subsequent striking against object, initial encounter; I25.10 Atherosclerotic heart disease of native coronary artery without angina pectoris; I11.0 Hypertensive heart disease with heart failure; I50.9 Heart failure, unspecified; E78.00 Pure hypercholesterolemia, unspecified; Z95.1 Presence of aortocoronary bypass graft
CPT/HCPCS: 99282

== ENCOUNTER 2024-11-23 01:47 | Emergency (ER) | payer MEDICARE, BC, SELFPAY ==
[2024-11-23 01:52] VITALS: BP 142/77
[2024-11-23 01:53] VITALS: BP 142/77; BMI 27.3
[2024-11-23 02:00] VITALS: BP 136/78
--- NOTE | 2024-11-23 02:04 | ED.GENMED ---
History of Present Illness
General
Chief Complaint: Fall
Source: patient and ambulance crew
Exam Limitations: none
Time Seen by Provider: 11/23/24 02:02
Nursing documentation reviewed up to this point in time: agreed with
History of Present Illness
History of Present Illness:
84-year-old male presents emergency department due to a fall, losing his balance and hitting his head. He takes aspirin, denies any other blood thinners. He denies loss of consciousness. His heart rate accelerated in the 140, but he was awake.
Concern for possible ventricular tachycardia.
Past History
Past History
ED Past Medical History: Arrthythmia, CAD, CHF, HTN, Hypercholesterolemia and Other (Chronic balance issues)
ED Past Surgical History: Cardiac (CABG/ICD)
Social History
Tobacco: Other
Alcohol: Other
Drug: None
Personal: Other
Living: other ()
Employment: Retired
Family History
Family History: Other
Review of Systems
Review of Systems
Allergies reviewed?: Yes
All Other Systems: Not applicable
Constitutional: Reports no symptoms
EENT: Reports no symptoms
Respiratory: Reports no symptoms
Cardiac: Reports no symptoms
ABD/GI: Reports no symptoms
: Reports no symptoms
Musculoskeletal: Reports no symptoms
Skin: Reports no symptoms
Neurological: Reports no symptoms
Endocrine: Reports no symptoms
Hematologic/Lymphatic: Reports no symptoms
Psychiatric: Reports no symptoms
Phy Exam
Physical Exam
Physical Exam:
Physical Exam
General: no apparent distress, not acutely ill
Neck: supple. no meningeal signs. normal posterior pharynx, cervical collar in place
Heart: s1/s2 regular rate and rhythm, no murmur. equal radial
pulses.
HEENT: Pupils equal round reactive to light, EOMI, hematoma on left forehead and occiput,
Lungs: no acute respiratory distress. clear bilaterally
Abdomen: normal bowel sounds. not tender. no CVAT
Neuro: alert and oriented. no focal neurological deficits cranial nerves II through XII intact
Skin: no rash
Psychiatric: well kept. interactive and cooperative
Extremities: no edema. no calf tenderness. negative homans. good distal pulses
Course
Orders/Labs/Results
Orders:
Orders
11/23/24 01:52
Electrocardiogram (*1) Urgent
Reason for Study: Syncope
11/23/24 01:53
EKG- Treatment ONCE
11/23/24 02:02
CT Cervical Spine W/o Iv Contr Urgent
Comment:
Reason For Exam: fall, neck pain
CT Head W/o Iv Contrast Urgent
Comment:
Reason For Exam: fall, hematoma left forehead, occiput
IV Insert/Care/Rem.- Treatment PRN
11/23/24 02:08
Complete Blood Count/With Diff Urgent
Comprehensive Metabolic Panel Urgent
Troponin I Urgent
Abnormal Lab Results
11/23/24
02:08
RBC 3.08 L 10^6/uL
(4.70-6.10)
Hgb 9.5 L g/dL
(13.0-18.0)
Hct 29.1 L %
(39.0-52.0)
MCV 94.5 H fL
(80.0-94.0)
MCHC 32.6 L g/dL
(33.0-37.0)
RDW 14.8 H %
(11.5-14.5)
Absolute Lymphs (auto) 0.7 L 10^3/uL
(1.2-3.4)
Neutrophils % 79.1 H %
(42.2-75.2)
Lymphocytes % 9.7 L %
(20.5-51.1)
Glucose 111 H mg/dl
(70-99)
Total Protein 5.1 L g/dl
(6.3-8.2)
Albumin 2.7 L g/dl
(3.5-5.0)
11/23/24 02:08
11/23/24 02:08
Vital Signs
Initial and Last Documented VS:
Initial Vital Signs
Pulse Ox
99
11/23/24 01:50
Last Documented Vital Signs
Temp Pulse Resp BP Pulse Ox
97.8 F 70 21 110/54 98
11/23/24 01:53 11/23/24 03:45 11/23/24 03:45 11/23/24 03:00 11/23/24 03:45
MDM/Problems Addressed
Differential Diagnosis Includes:
Intracranial hemorrhage, cervical spine fracture
MDM/Problems Addressed:
84-year-old male with fall, head contusion. Episode on monitor concerning for ventricular fibrillation, however it was reviewed and found to be a tremor. Interrogation of pacemaker revealed no dysrhythmias.
Chronic conditions affecting care: Arrhythmia
*Radiology
Radiology exam reviewed: radiology read reviewed (CT head and cervical spine no acute findings)
*Pulse Oximetry
Patient hypoxic: no
*EKG
Interpreted by ED Provider?: Yes
EKG Intrepretation Date: 11/23/24
EKG Intrepretation Time: 01:53
Interpretation: abnormal
Comparison EKG: no comparison EKG present
Heart Rate: 88
Rate: normal
Rhythm: av sequential
[place]: left axis deviation
Interval: normal interval
QRS Pattern: normal QRS
Ischemia: no ischemia
*Department Mgr Interpretation
Rate: normal
Interpretation: abnormal
Heart Rate: 70
Rhythm: ventricular paced
*Critical Care Note
Total Time (30-74mins, 75-104mins- exclusive of procedures): Not Applicable
Patient Management
Social determinants of health affecting care: Living situation and Strong social support
Escalation/DeEscalation of care consider admission/obs:
Admit not indicated
ED Attending Note
-
Portions of this chart may have been created with voice recognition software.� Occasional wrong word or��sound alike� substitutions may have occurred due to the inherent limitations of voice recognition software.
Discharge Plan
Departure
Patient Disposition: [facility]SNF
Date of Disposition: 11/23/24
Time of Disposition: 04:24
Patient with high blood pressure during this ER visit?: No
Condition: Good
Discharge Problem:
Contusion of head, Fall
Instructions: Head Injury in Adults (DC), Preventing falls in adults
Prescriptions:
No Action
ferrous sulfate 325 mg (65 mg iron) Tablet
325 mg PO Q48H
aspirin 81 mg Tablet,Chewable
81 mg PO HS
metoprolol succinate 25 mg Tablet Extended Release 24 Hr
25 mg PO DAILY
finasteride 5 mg Tablet
5 mg PO DAILY
atorvastatin 80 mg tablet
80 mg PO DAILY
amiodarone 200 mg tablet
200 mg PO DAILY
levothyroxine 25 mcg tablet
25 mcg PO DAILY
carbidopa-levodopa 25-100 mg tablet
2 tab PO BID
Referrals:
Nessa Garner CRNP [Family Provider] -
Interventions
Interventions:
*Risk Screen - Suicide Last Done: 11/23/24 01:53
*General Assessment Last Done: 11/23/24 01:53
*Neglect/Abuse Screening Last Done: 11/23/24 01:53
*ED- Fall Risk Assessment Last Done: 11/23/24 02:05
*ED COVID-19 Vaccine History Last Done: 11/23/24 02:05
ED-Musculoskeletal Assessment Last Done: 11/23/24 02:05
ED- Neurological Assessment Last Done: 11/23/24 02:05
ED-Skin Assessment Last Done: 11/23/24 02:05
Discharge Date and Time
Print Language: SAMI
[2024-11-23 02:16] LABS: % Basophils 0.3 % (0-2); % Eosinophils 2.5 % (0-6); % Immature Granulocytes 0.4 % (0-0.5); % Lymphocytes 9.7 % (20.5-51.1); % Neutrophils 79.1 % (42.2-75.2); Absolute Eosinophils 0.2 10^3/uL (0-0.7); Absolute Lymphocytes 0.7 10^3/uL (1.2-3.4); Absolute Monocytes 0.6 10^3/uL (0.1-0.6); Absolute Neutrophils 5.7 10^3/uL (1.4-6.5); Hematocrit 29.1 % (39.0-52.0); Hemoglobin 9.5 g/dL (13.0-18.0); Mean Corp Hgb Conc. 32.6 g/dL (33.0-37.0); Mean Corpuscular Hgb 30.8 pg (27.0-31.0); Mean Corpuscular Volume 94.5 fL (80.0-94.0); Mean Platelet Volume 9.3 fL (7.4-10.4); Nucleated Red Blood Cells % 0 % (-); Platelet Count 160 10^3/uL (130-400); Red Blood Cell Count 3.08 10^6/uL (4.70-6.10); Red Cell Dist. Width 14.8 % (11.5-14.5); White Blood Cell Count 7.2 10^3/uL (4.8-10.8)
[2024-11-23 02:45] LABS: Troponin I < 0.012 ng/ml
[2024-11-23 02:54] LABS: ALT (SGPT) 12 U/L (0-50); AST (SGOT) 20 U/L (17-59); Albumin 2.7 g/dl (3.5-5.0); Alkaline Phosphatase 92 U/L (38-126); Blood Urea Nitrogen 18 mg/dl (9-20); Calcium 8.8 mg/dl (8.4-10.2); Carbon Dioxide 25 mmol/L (22-30); Chloride 107 mmol/L (98-107); Estimated Creatinine Clearance 49 ml/min; Glucose 111 mg/dl (70-99); Potassium 4.4 mmol/L (3.5-5.1); Sodium 136 mmol/L (135-145); Total Bilirubin 0.6 mg/dl (0.2-1.3); Total Protein 5.1 g/dl (6.3-8.2); eGFR > 60.00
[2024-11-23 03:00] VITALS: BP 110/54
[2024-11-23 04:00] VITALS: BP 119/58
[2024-11-23 05:00] VITALS: BP 143/70
== END 2024-11-23 06:21 ==
LOC: EMR 01:47
PROVIDERS: EMERGENCY PHYSICIAN Emergency Medicine; FAMILY PHYSICIAN Nurse Practitioner Family
DX: S00.83XA Contusion of other part of head, initial encounter (principal); W19.XXXA Unspecified fall, initial encounter; I49.9 Cardiac arrhythmia, unspecified; E78.00 Pure hypercholesterolemia, unspecified; I25.10 Atherosclerotic heart disease of native coronary artery without angina pectoris; I11.0 Hypertensive heart disease with heart failure; I50.9 Heart failure, unspecified; Z95.1 Presence of aortocoronary bypass graft; Z79.82 Long term (current) use of aspirin
CPT/HCPCS: 93288; 99284; 70450; 72125; 80053; 84484; 85025; 93005

== ENCOUNTER 2024-12-14 12:44 | Inpatient (IN) | payer MEDICARE, BC, SELFPAY ==
[2024-12-14] VITALS (7 sets, daily range): BP systolic 104–146; BP diastolic 47–66; BMI 27.1; BMI 26.4
[2024-12-14 10:37] LABS: % Basophils 0.6 % (0-2); % Eosinophils 0.8 % (0-6); % Immature Granulocytes 0.3 % (0-0.5); % Lymphocytes 4.5 % (20.5-51.1); % Monocytes 8.1 % (1.7-9.3); % Neutrophils 85.7 % (42.2-75.2); Absolute Basophils 0.1 10^3/uL (0-0.2); Absolute Eosinophils 0.1 10^3/uL (0-0.7); Absolute Lymphocytes 0.5 10^3/uL (1.2-3.4); Absolute Neutrophils 10.1 10^3/uL (1.4-6.5); Hematocrit 28.3 % (39.0-52.0); Hemoglobin 9.1 g/dL (13.0-18.0); Mean Corp Hgb Conc. 32.2 g/dL (33.0-37.0); Mean Corpuscular Volume 93.4 fL (80.0-94.0); Mean Platelet Volume 9.1 fL (7.4-10.4); Nucleated Red Blood Cells % 0 % (-); Platelet Count 315 10^3/uL (130-400); Red Blood Cell Count 3.03 10^6/uL (4.70-6.10); Red Cell Dist. Width 14.9 % (11.5-14.5); White Blood Cell Count 11.8 10^3/uL (4.8-10.8)
[2024-12-14 10:47] LABS: ALT (SGPT) 26 U/L (0-50); AST (SGOT) 23 U/L (17-59); Albumin 2.6 g/dl (3.5-5.0); Alkaline Phosphatase 100 U/L (38-126); Blood Urea Nitrogen 16 mg/dl (9-20); Calcium 8.8 mg/dl (8.4-10.2); Carbon Dioxide 27 mmol/L (22-30); Chloride 105 mmol/L (98-107); Estimated Creatinine Clearance 70 ml/min; Glucose 111 mg/dl (70-99); Potassium 4.6 mmol/L (3.5-5.1); Sodium 137 mmol/L (135-145); Total Bilirubin 0.6 mg/dl (0.2-1.3); eGFR > 60.00
[2024-12-14 10:59] LABS: COVID-19 Antigen Negative (Negative)
--- NOTE | 2024-12-14 11:04 | ED.GENMED ---
History of Present Illness
General
Chief Complaint: Breathing Problem
Source: [facility] and [facility]
Exam Limitations: none
Time Seen by Provider: 12/14/24 10:06
Nursing documentation reviewed up to this point in time: agreed with
History of Present Illness
History of Present Illness:
84-year-old male [facility] presents with cough fatigue no leg edema no fever or chills, subacute onset, non-smoker does have Parkinson's, no abdominal pain
Past History
Past History
ED Past Medical History: Arrthythmia, CAD, CHF, HTN, Hypercholesterolemia and Other (Chronic balance issues Parkinson's)
ED Past Surgical History: Cardiac (CABG/ICD)
Social History
Tobacco: Non-smoker
Alcohol: None
Drug: None
Living: [facility] ()
Employment: Retired
Family History
Family History: Other
Review of Systems
Review of Systems
All Other Systems: Not applicable
Constitutional: Reports fatigue; Denies fever
Phy Exam
Physical Exam
Physical Exam:
Physical Exam
General: Nontoxic elderly male
Neck: No jaundice opens eyes to voice
Heart: s1/s2 regular rate and rhythm, no murmur. equal radial pulses.
Lungs: Wheezing rhonchi bilateral
Abdomen: Nontender
Neuro: alert and oriented. no focal neurological deficits
Skin: no rash
Psychiatric: well kept. interactive and cooperative
Extremities: no edema. no calf tenderness.
Scores
Heart Failure Risk
Heart Failure Risk Score: Not Applicable
Course
Orders/Labs/Results
Orders:
Orders
12/14/24 10:20
EKG [Electrocardiogram (*1)] Urgent
Reason for Study: Fatigue / Weakness
EKG- Treatment ONCE
12/14/24 10:22
COVID-19 Antigen Urgent
Source: Nasal Swab
Complete Blood Count/With Diff Urgent
Comprehensive Metabolic Panel Urgent
INF RAPID [Influenza A+B Rapid Molecular] Urgent
BILL Source: Nasal Swab
Specimen Description:
12/14/24 10:26
CR Chest - 2 Views Urgent
Comment:
Reason For Exam: cough
12/14/24 10:34
Ipratropium/Albuterol Sulfate [Duoneb] 3 ml INH R NOW STA
12/14/24 11:47
Add On- LAB Urgent
Tests Added?: pBNP
12/14/24 11:49
Cefepime HCl [Maxipime] 2,000 mg IV NOW STA
12/14/24 11:57
Sterile Water [Sterile Water For Injection] 10 ml .ROUTE .STK-MED ONE
12/14/24 12:00
Blood Culture Q30M
BILL Source: Blood/Venous
Specimen Description:
12/14/24 12:30
Blood Culture Q30M
BILL Source: Blood/Venous
Specimen Description:
Abnormal Lab Results
12/14/24
10:22
WBC 11.8 H 10^3/uL
(4.8-10.8)
RBC 3.03 L 10^6/uL
(4.70-6.10)
Hgb 9.1 L g/dL
(13.0-18.0)
Hct 28.3 L %
(39.0-52.0)
MCHC 32.2 L g/dL
(33.0-37.0)
RDW 14.9 H %
(11.5-14.5)
Absolute Neuts (auto) 10.1 H 10^3/uL
(1.4-6.5)
Absolute Lymphs (auto) 0.5 L 10^3/uL
(1.2-3.4)
Absolute Monos (auto) 1.0 H 10^3/uL
(0.1-0.6)
Neutrophils % 85.7 H %
(42.2-75.2)
Lymphocytes % 4.5 L %
(20.5-51.1)
Glucose 111 H mg/dl
(70-99)
Total Protein 5.0 L g/dl
(6.3-8.2)
Albumin 2.6 L g/dl
(3.5-5.0)
12/14/24 10:22
12/14/24 10:22
Vital Signs
Initial and Last Documented VS:
Initial Vital Signs
Pulse Resp BP Pulse Ox
70 28 112/53 93
12/14/24 10:01 12/14/24 10:01 12/14/24 10:01 12/14/24 10:01
Last Documented Vital Signs
Temp Pulse Resp BP Pulse Ox
98.0 F 70 14 112/53 93
12/14/24 10:05 12/14/24 10:05 12/14/24 10:05 12/14/24 10:05 12/14/24 10:16
MDM/Problems Addressed
Differential Diagnosis Includes:
Bronchitis pneumonia heart failure doubt pneumothorax or PE
MDM/Problems Addressed:
Shortness of breath
Chronic conditions affecting care: Neurological disorder
Acute Exacerbation and/or Progression of Chronic Illness: Neurological disorder
*Radiology
Radiology exam reviewed: preliminary read by ED provider
*Pulse Oximetry
Patient hypoxic: no
*EKG
Interpreted by ED Provider?: Yes
Interpretation: abnormal
Comparison EKG: no comparison EKG present
Heart Rate: 78
Rate: normal
Rhythm: ventricular paced
Ischemia: non-specific ST changes
*Lumber Hacker Interpretation
Rate: normal
Interpretation: normal
Heart Rate: 78
Rhythm: ventricular paced
*Critical Care Note
Total Time (30-74mins, 75-104mins- exclusive of procedures): Not Applicable
Update Note
Update Note:
12 noon update chest x-ray noted briefly reviewed with radiology looks like bilateral pneumonia is post heart failure wet cultures proBNP started on antibiotics fairly fatigued elderly [facility] a [facility] low threshold to admit
ED Attending Note
-
Portions of this chart may have been created with voice recognition software.� Occasional wrong word or��sound alike� substitutions may have occurred due to the inherent limitations of voice recognition software.
Discharge Plan
Departure
Patient Disposition: Admit
Date of Disposition: 12/14/24
Time of Disposition: 12:01
Presentation/result/management discussed w/ accepting MD/DO: Hospitalist
Patient with high blood pressure during this ER visit?: No
Condition: Fair
Covid-19: Negative COVID-19
Discharge Problem:
Pneumonia
Prescriptions:
No Action
ferrous sulfate 325 mg (65 mg iron) Tablet
325 mg PO Q48H
aspirin 81 mg Tablet,Chewable
81 mg PO HS
metoprolol succinate 25 mg Tablet Extended Release 24 Hr
25 mg PO DAILY
finasteride 5 mg Tablet
5 mg PO DAILY
atorvastatin 80 mg tablet
80 mg PO DAILY
amiodarone 200 mg tablet
200 mg PO DAILY
levothyroxine 25 mcg tablet
25 mcg PO DAILY
carbidopa-levodopa 25-100 mg tablet
2 tab PO BID
Referrals:
Nessa Garner CRNP [Family Provider] -
Interventions
Interventions:
*Risk Screen - Suicide Last Done: 12/14/24 10:05
*General Assessment Last Done: 12/14/24 10:05
*Neglect/Abuse Screening Last Done: 12/14/24 10:05
*ED COVID-19 Vaccine History Last Done: 12/14/24 10:05
ED- Cardiac Assessment Last Done: 12/14/24 10:15
ED- Pulmonary Assessment Last Done: 12/14/24 10:16
Discharge Date and Time
Print Language: MALTESE
[2024-12-14] MEDS: DUONEB 3 ML INH (11:25)
[2024-12-14] MEDS: MAXIPIME 2000 MG IV (12:09)
--- NOTE | 2024-12-14 12:28 | HPS.HSE ---
Family Physician
-
Family Physician: Nessa Garner
Chief Complaint
-
cough
History of Present Illness
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
Parkinson's disease, presenting with dry cough, shortness of breath for the past 2 days. He denies any fevers or chills. Denies chest pain. He denies any sore throat or bodyaches. Denies nausea vomiting or diarrhea. Denies history of asthma or
COPD.
He denies smoking or alcohol use.
Medical History
Past Medical History
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
Parkinson's disease, )
Past Surgical History: Reports Other (CABG/ICD))
Social History
Tobacco: Non-smoker
Alcohol: None
Drug: None
Family History
Family History: Not pertinent
Allergies / Home Medications
Allergies reflects when Allergies were last updated in [facility].
Home Medications with original date entered in [facility]
Allergy/Medication List:
Allergies
Allergy/AdvReac Type Severity Reaction Status Date / Time
No Known Allergies Allergy Verified 10/22/24 17:40
Home Medications
aspirin 81 mg chewable tablet 81 mg PO DAILY Blood clot prevention/tx 01/20/23
ferrous sulfate 325 mg (65 mg iron) tablet 325 mg PO DAILY Supplement 01/20/23
finasteride 5 mg tablet 5 mg PO DAILY Urinary issue 01/20/23
amiodarone 200 mg tablet 200 mg PO DAILY Heart Disease/Condition 06/26/24
atorvastatin 80 mg tablet 40 mg PO QPM High Cholesterol 06/26/24
levothyroxine 25 mcg tablet 25 mcg PO DAILY Thyroid 06/26/24
acetaminophen 325 mg tablet (Tylenol) 650 mg PO Q6HPRN PRN mild pain 12/14/24
albuterol sulfate 2.5 mg/3 mL (0.083 %) solution for nebulization 2.5 mg inhalation R QID 12/14/24
benzonatate 200 mg capsule 200 mg PO TIDPRN PRN cough 12/14/24
buspirone 5 mg tablet 5 mg PO BID 12/14/24
calcium 600 mg (as carbonate)-vitamin D3 5 mcg (200 unit) capsule (Calcium 600 + D(3)) 1 cap PO BID 12/14/24
carbidopa 25 mg-levodopa 100 mg tablet 2 tab PO BID 12/14/24
docusate sodium 100 mg capsule (Colace) 100 mg PO BIDPRN PRN constipation 12/14/24
guaifenesin 400 mg tablet 400 mg PO TID 12/14/24
metoprolol tartrate 25 mg tablet 25 mg PO DAILY 12/14/24
ondansetron HCl 4 mg tablet 4 mg PO Q8HPRN PRN nausea 12/14/24
polyethylene glycol 3350 17 gram oral powder packet (Miralax) 17 g PO DAILY 12/14/24
ramelteon 8 mg tablet 8 mg PO HS 12/14/24
sennosides 8.6 mg tablet 17.2 mg PO DAILY 12/14/24
Review of Systems
-
History Source: Patient
A 12 point ROS was completed and negative except as noted: Yes
Constitutional: Reports No Symptoms
EENT: Reports No Symptoms
Respiratory: Reports See HPI
Cardiac: Reports No Symptoms
Abdomen/GI: Reports No Symptoms
: Reports No Symptoms
Musculoskeletal: Reports No Symptoms
Skin: Reports No Symptoms
Neurological: Reports No Symptoms
Endocrine: Reports No Symptoms
Hematologic/Lymphatic: Reports No Symptoms
Psych: Reports No Symptoms
Physical Exam
Vital Signs
Vital Signs
Temp Pulse Resp BP Pulse Ox
98.0 F 70 14 112/53 93
12/14/24 10:05 12/14/24 10:05 12/14/24 10:05 12/14/24 10:05 12/14/24 10:16
Physical Exam
General: Well Developed, Well Nourished and No Apparent Distress
HEENT: NormoCephalic, Moist mucous membranes and Atraumatic
Respiratory: Clear
Cardiac: S1/S2 and Regular Rhythm; No Murmur or Rub
GI: Soft, Non Tender, Non Distended and Normal Bowel Sounds; No Organomegaly
Rectal: Deferred by Provider
Musculoskeletal: No Clubbing, No Cyanosis and No Edema
Skin: No Rash
Neuro: Nonfocal/grossly intact
Laboratory Results
-
12/14/24 10:22
12/14/24 10:22
Laboratory Results
Total Bilirubin 0.6 mg/dl (0.2-1.3) 12/14/24 10:22
AST 23 U/L (17-59) 12/14/24 10:22
ALT 26 U/L (0-50) 12/14/24 10:22
Alkaline Phosphatase 100 U/L (38-126) 12/14/24 10:22
Data Reviewed
-
Lab Data: Labs Reviewed by me
Old Records: Reviewed
Impression/Plan
-
IMPRESSION:
PLAN:
#Community-acquired pneumonia
- Leukocytosis
- Chest x-ray shows bibasilar opacifications suspicious for pneumonia
- COVID and flu negative
- Check sputum
- Blood cultures pending
- Ceftriaxone/doxycycline
- Continue benzonatate, guaifenesin
Chronic anemia
- Hemoglobin stable
- Continue ferrous sulfate
Paroxysmal atrial fibrillation with ICD
- Continue amiodarone
- Not on anticoagulation
CAD status post CABG
- Continue aspirin, statin
- Continue metoprolol
Essential hypertension
History of orthostatic hypotension
Sigmoid colon cancer status post mini flexure resection/intracorporeal anastomosis
Parkinson's disease
- Continue carbidopa levodopa
Anxiety/depression
- Continue buspirone
Amatory dysfunction/frequent falls
Memory impairment
BPH
- Continue finasteride
Hypothyroidism
- Continue levothyroxine
Constipation
- Continue bowel regimen
Insomnia
- Continue ramelteon
Full code
DVT prophylaxis�heparin
Regular diet
[2024-12-14 14:42] LABS: NT-proBNP 1050 pg/ml
[2024-12-14] MEDS: VENTOLIN NEBULES 2.5 MG INH (19:10)
[2024-12-14] MEDS: VENTOLIN NEBULES INH (19:14)
[2024-12-14] MEDS: LIPITOR 40 MG PO (20:33)
[2024-12-14] MEDS: HEPARIN 5000 UNITS SC (20:33)
[2024-12-14] MEDS: OSCAL 500 + D 500 MG PO (20:33)
[2024-12-14] MEDS: STERILE WATER FOR INJECTION 10 ML IV (20:33)
[2024-12-14] MEDS: BUSPAR 5 MG PO (20:33)
[2024-12-14] MEDS: SINEMET 25-100 2 TABLET PO (20:33)
[2024-12-14] MEDS: MUCINEX 600 MG PO (20:33)
[2024-12-14] MEDS: ROCEPHIN 1000 MG IV (20:33)
[2024-12-14] MEDS: VIBRAMYCIN 100 MG PO (20:34)
[2024-12-15] MEDS: SYNTHROID 25 MCG PO (05:10)
[2024-12-15 06:00] VITALS: BMI 26.1
[2024-12-15 06:49] LABS: % Basophils 1.4 % (0-2); % Eosinophils 2.7 % (0-6); % Immature Granulocytes 0.4 % (0-0.5); % Lymphocytes 6.5 % (20.5-51.1); % Monocytes 9.6 % (1.7-9.3); % Neutrophils 79.4 % (42.2-75.2); Absolute Basophils 0.1 10^3/uL (0-0.2); Absolute Eosinophils 0.3 10^3/uL (0-0.7); Absolute Lymphocytes 0.6 10^3/uL (1.2-3.4); Absolute Monocytes 0.9 10^3/uL (0.1-0.6); Absolute Neutrophils 7.3 10^3/uL (1.4-6.5); Hematocrit 27.6 % (39.0-52.0); Mean Corp Hgb Conc. 32.6 g/dL (33.0-37.0); Mean Corpuscular Hgb 29.8 pg (27.0-31.0); Mean Corpuscular Volume 91.4 fL (80.0-94.0); Mean Platelet Volume 8.8 fL (7.4-10.4); Nucleated Red Blood Cells % 0 % (-); Platelet Count 327 10^3/uL (130-400); Red Blood Cell Count 3.02 10^6/uL (4.70-6.10); Red Cell Dist. Width 14.8 % (11.5-14.5); White Blood Cell Count 9.2 10^3/uL (4.8-10.8)
[2024-12-15 07:07] LABS: ALT (SGPT) < 10 U/L (0-50); AST (SGOT) 23 U/L (17-59); Albumin 2.4 g/dl (3.5-5.0); Alkaline Phosphatase 90 U/L (38-126); Blood Urea Nitrogen 13 mg/dl (9-20); Carbon Dioxide 27 mmol/L (22-30); Chloride 105 mmol/L (98-107); Estimated Creatinine Clearance 70 ml/min; Glucose 94 mg/dl (70-99); Potassium 4.5 mmol/L (3.5-5.1); Sodium 136 mmol/L (135-145); Total Bilirubin 0.7 mg/dl (0.2-1.3); Total Protein 4.7 g/dl (6.3-8.2); eGFR > 60.00
[2024-12-15] MEDS: VENTOLIN NEBULES 2.5 MG INH ×4 (07:12→20:14)
[2024-12-15] MEDS: OSCAL 500 + D 500 MG PO ×2 (07:40→20:36)
[2024-12-15] MEDS: SINEMET 25-100 2 TABLET PO ×2 (07:40→20:36)
[2024-12-15] MEDS: VIBRAMYCIN 100 MG PO ×2 (07:41→20:37)
[2024-12-15] MEDS: FEOSOL 325 MG PO (07:41)
[2024-12-15] MEDS: BUSPAR 5 MG PO ×2 (07:41→20:36)
[2024-12-15] MEDS: SENOKOT 17.2 MG PO (07:42)
[2024-12-15] MEDS: PROSCAR 5 MG PO (07:42)
[2024-12-15] MEDS: MIRALAX 17 GRAMS PO (07:42)
[2024-12-15] MEDS: HEPARIN 5000 UNITS SC ×2 (07:42→20:36)
[2024-12-15] MEDS: MUCINEX 600 MG PO ×2 (07:42→20:36)
[2024-12-15] MEDS: LOW STRENGTH ASPIRIN 81 MG PO (07:42)
[2024-12-15] MEDS: LOPRESSOR 25 MG PO (07:43)
[2024-12-15] MEDS: PACERONE 200 MG PO (07:43)
[2024-12-15 07:56] VITALS: BP 122/67
--- NOTE | 2024-12-15 10:28 | CM ---
Patient seen at bedside.
Dx: Pneumonia
PMH: afib, HTN, orthostatic hypotension, CAD, CABG, memory impairment, Parkinsons
IA completed-spoke with son Tai
Resides at [facility]
PLOF: walker, wheelchair for longer distance
DME: Walker, wheelchair
CURRENT WITH [facility]/ [facility] in past
Referral entered in [facility]. Notified Xenia Boss
PT/OT eval
PCP: Nessa Garner
Pharmacy: [facility]
PLAN: [facility], Await PT/OT recs
[2024-12-15 14:32] VITALS: BP 106/57; BP 80/44; BP 94/52; BP 98/50; PULSE 70; PULSE 72; PULSE 76; O2SAT 96
[2024-12-15 15:22] VITALS: BP 107/53
[2024-12-15 15:37] VITALS: BP 106/57; BP 80/44; BP 94/52; BP 98/50; PULSE 70; PULSE 76; O2SAT 96
[2024-12-15] MEDS: LIPITOR 40 MG PO (17:11)
--- NOTE | 2024-12-15 17:55 | W.PN.HOSP.TC ---
Addendum entered and electronically signed by Enzo Garcia MD 12/15/24 22:52:
Attending Addendum-
I saw and evaluated the patient. I reviewed the resident�s note and agree with findings and plan as documented in the resident�s note. Sub: Continues to feel weak and has cough. Denies fevers chills. Full 12 point ROS reviewed and negative except as
documented Exam: Vitals reviewed in chart GEN-NAD heart RRR lungs bibasilar rhonchi no wheeze abd soft LE no edema
PLAN:
#Community-acquired pneumonia
- Leukocytosis resolving
- Chest x-ray shows bibasilar opacifications suspicious for pneumonia
- COVID and flu negative
- Blood cultures NGTD
- Ceftriaxone/doxycycline day #2
- Continue benzonatate, guaifenesin
# Acute Hypoxemic Respiratory Failure
- wean o2 for sats > 90%
#Chronic anemia
- Hemoglobin stable
- Continue ferrous sulfate
#Paroxysmal atrial fibrillation with ICD
- Continue amiodarone
- Not on anticoagulation- fall risk
#CAD status post CABG
- has ICD
- Continue aspirin, statin
- Continue metoprolol
- no previous echo for comparison
#History of orthostatic hypotension
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
#Parkinson's disease
- Continue carbidopa levodopa
#Anxiety/depression
- Continue buspirone
#Ambulatory dysfunction/frequent falls
#Memory impairment
#BPH
- Continue finasteride
#Hypothyroidism
- Continue levothyroxine
#Constipation
- Continue bowel regimen
#Insomnia
- Continue ramelteon
Full code->DNR
DVT prophylaxis�heparin
Regular diet
Dispo DC to [facility] in am
ACP
Patient consented to discuss, was alone, time spent explanation of advance directives, changes in health status, patient�s health care wishes if the patient becomes unable to make health decisions, goals of care, code status, and prognosis code
status changed to full- 'do i dont want all that' - 16 minutes
Time spent coordinating care, review of plan of care with resident, personally reviewed previous records in EMR, med rec, labs, radiology, d/w nursing, family total time documented is exclusive of any additional time listed that was spent in advance
care planning discussion -� 54 minutes
Original Note:
Today's Communication/Plan
-
c/w abx
observe cultures
wean O2
PT/OT
likely d/c tomorrow, CM aware
Assessment / Plan
Assessment / Plan
84 year old male presenting from for symptoms of shortness of breath and cough
ACUTE MANAGING
#Community Acquired Pneumonia
- CXR + for bibasilar opacifications suspicious for pneumonia, labs showing Leukocytosis
- COVID/Flu negative,
- Blood Cx NG x24hr, MRSA pending
- C/w Ceftriaxone/Doxy, benzonatate, guaifenesin
- on 2L NC, wean as tolerated
#Ambulatory Dysfunction
- ordered PT/OT evaluation, possible SNF vs. return to [place]
CHRONIC STABLE
#Chronic Normocytic Anemia - hgb stable, c/t monitor, transfuse if <7, c/w home ferrous sulfate
#Paroxysmal atrial fibrillation w/ ICD -c/w amiodarone
#CAD s/p CABG - c/w aspirin, statin, metoprolol
#History of orthostatic hypotension
#Essential hypertension - pressures stable, will c/t monitor
#Parkinson's disease - c/w carbidopa levodopa
#Anxiety/depression - c/w buspar
#BPH - c/w finasteride
#Hypothyroidism - c/w levothyroxine
#Constipation - c/w bowel regimen
#Insomnia - c/w ramelteon
Code Status: DNR
DVT PPx: Heparin 5000 q12
Diet: Regular diet
Anticipated Discharge: Within 24 hours
Subjective/Interval History
-
Date of Service: December 15, 2024
Feeling well this morning, no acute complaints and no overnight events.
Objective Data
-
Labs:
Laboratory Results
12/15/24
06:33
WBC 9.2
Hgb 9.0 L
Hct 27.6 L
Plt Count 327
Sodium 136
Potassium 4.5
Chloride 105
Carbon Dioxide 27
BUN 13
Creatinine 0.7
Glucose 94
Calcium 9.0
Total Bilirubin 0.7
AST 23
ALT < 10
Alkaline Phosphatase 90
Vital Signs:
Vital Signs
Temp Pulse Resp BP Pulse Ox
97.4 F 70 16 107/53 98
12/15/24 15:22 12/15/24 15:22 12/15/24 15:22 12/15/24 15:22 12/15/24 15:22
I&O
12/14/24 12/15/24 12/16/24
06:59 06:59 06:59
Intake Total 240 / 240 720 / 720
Output Total 50 / 50 600 / 600
Balance 190 / 190 120 / 120
Review of Systems
-
Unable to obtain full review of systems at this time due to: Dementia
History Source: Patient
Constitutional: Denies Fever, Night Sweats or Chills
EENT: Reports No Symptoms Reported
Respiratory: Reports No Symptoms
Cardiac: Reports No Symptoms
Abdomen/GI: Reports No Symptoms
Genitourinary: Reports No Symptoms
Musculoskeletal: Reports No Symptoms
Physical Exam
-
General: Well Developed, Well Nourished, No Apparent Distress and Comfortable
HEENT: Normocephalic, Atraumatic, Moist Mucous Membranes, Anicteric, [place] Conjunctivae, PERRLA, Nose Appears Normal, Ears Appear Normal and Oxygen
Respiratory: Rales and Non Labored Respirations; Negative Wheezes or Rhonchi
Cardiac: Regular Rhythm and S1/S2; Negative Murmur or Rub
GI: Soft, Nontender, Nondistended and Normal Bowel Sounds
Genito-urinary: No Costovertebral Tender and Clear Urine
Musculoskeletal: No Clubbing, No Cyanosis and No Edema
Skin: Warm, Dry and IV Access / Catheter Site
Neuro: Awake, Alert and Oriented
Psych: Calm
[2024-12-15] MEDS: ROCEPHIN 1000 MG IV (20:36)
[2024-12-15] MEDS: STERILE WATER FOR INJECTION 10 ML IV (20:36)
[2024-12-15 23:04] VITALS: BP 112/47
[2024-12-16] MEDS: SYNTHROID 25 MCG PO (05:14)
[2024-12-16 06:00] VITALS: BMI 25.7
[2024-12-16 07:27] VITALS: BP 123/60
[2024-12-16] MEDS: VENTOLIN NEBULES 2.5 MG INH ×4 (07:29→19:09)
[2024-12-16] MEDS: VIBRAMYCIN 100 MG PO ×2 (07:48→19:48)
[2024-12-16] MEDS: SENOKOT 17.2 MG PO (07:48)
[2024-12-16] MEDS: FEOSOL 325 MG PO (07:48)
[2024-12-16] MEDS: OSCAL 500 + D 500 MG PO ×2 (07:48→19:48)
[2024-12-16] MEDS: MIRALAX 17 GRAMS PO (07:49)
[2024-12-16] MEDS: HEPARIN 5000 UNITS SC ×2 (07:49→19:49)
[2024-12-16] MEDS: PACERONE 200 MG PO (07:49)
[2024-12-16] MEDS: MUCINEX 600 MG PO ×2 (07:49→19:48)
[2024-12-16] MEDS: SINEMET 25-100 2 TABLET PO ×2 (07:49→19:48)
[2024-12-16] MEDS: LOW STRENGTH ASPIRIN 81 MG PO (07:49)
[2024-12-16] MEDS: LOPRESSOR 25 MG PO (07:49)
[2024-12-16] MEDS: PROSCAR 5 MG PO (07:49)
[2024-12-16] MEDS: BUSPAR 5 MG PO ×2 (07:55→19:48)
--- NOTE | 2024-12-16 08:09 | W.PN.HOSP.TC ---
Addendum entered and electronically signed by Enzo Garcia MD 12/16/24 22:28:
Attending Addendum-
I saw and evaluated the patient. I reviewed the resident�s note and agree with findings and plan as documented in the resident�s note. Sub: 'I feel good, I dont want to go to rehab' Continues with mild cough but improved. Denies fevers chills. Full
12 point ROS reviewed and negative except as documented Exam: Vitals reviewed in chart GEN-NAD heart RRR lungs bibasilar rhonchi no wheeze abd soft LE no edema
PLAN:
#Community-acquired pneumonia
- Leukocytosis resolved
- Chest x-ray shows bibasilar opacifications
- COVID and flu negative
- Blood cultures NGTD
- Ceftriaxone/doxycycline day #3
- Continue benzonatate, guaifenesin
#Stage 1 sacral ulcer
-wound care
#Chronic anemia
- Hemoglobin stable
- Continue ferrous sulfate
#Paroxysmal atrial fibrillation with ICD
- Continue amiodarone
- Not on anticoagulation- fall risk
#CAD status post CABG
- has ICD
- Continue aspirin, statin
- Continue metoprolol
- no previous echo for comparison
#History of orthostatic hypotension
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
#Parkinson's disease
- Continue carbidopa levodopa
#Anxiety/depression
- Continue buspirone
#Ambulatory dysfunction/frequent falls
#Memory impairment
#BPH
- Continue finasteride
#Hypothyroidism
- Continue levothyroxine
#Constipation
- Continue bowel regimen
#Insomnia
- Continue ramelteon
Full code->DNR
DVT prophylaxis�heparin
Regular diet
Dispo- previously from [facility] son would like to DC [facility] then LTC DC in am CM aware
Time spent coordinating care, review of plan of care with resident, personally reviewed records in EMR, med rec, consults, notes, labs, radiology, d/w nursing � 51 mins
Original Note:
Today's Communication/Plan
-
C/w abx
DC to [facility] as early as tomorrow
Assessment / Plan
Assessment / Plan
84 year old male presenting from [facility] for symptoms of shortness of breath and cough
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 Soonest he would be discharged out be tomorrow.
ACUTE MANAGING
#Community Acquired Pneumonia
- CXR + for bibasilar opacifications suspicious for pneumonia, labs showing Leukocytosis
- COVID/Flu negative
- Blood Cx NG x24hr, MRSA negative
- C/w Ceftriaxone/Doxy d3, c/w benzonatate prn, guaifenesin
- off O2, saturating well
#Ambulatory Dysfunction
- PT/OT recommending SNF, as above
#Stage 1 buttock pressure injury
- present on admission, dry and intact
- stable, barrier ointment provided by wound care
CHRONIC STABLE
#Chronic Normocytic Anemia - hgb stable, c/t monitor, transfuse if <7, c/w home ferrous sulfate
#Paroxysmal atrial fibrillation w/ ICD -c/w amiodarone
#CAD s/p CABG - c/w aspirin, statin, metoprolol
#History of orthostatic hypotension
#Essential hypertension - pressures stable, will c/t monitor
#Parkinson's disease - c/w carbidopa levodopa
#Anxiety/depression - c/w buspar
#BPH - c/w finasteride
#Hypothyroidism - c/w levothyroxine
#Constipation - c/w bowel regimen
#Insomnia - c/w ramelteon
Code Status: DNR
DVT PPx: Heparin 5000 q12
Diet: Regular diet
Anticipated Discharge: 24 - 48 hours
Subjective/Interval History
-
Date of Service: December 16, 2024
Feels well today, no acute complaints. Off supplemental O2, saturating well.
Objective Data
-
Vital Signs:
Vital Signs
Temp Pulse Resp BP Pulse Ox
98.6 F 74 16 123/60 93
12/16/24 07:27 12/16/24 07:33 12/16/24 07:33 12/16/24 07:27 12/16/24 07:33
I&O
12/15/24 12/16/24 12/17/24
06:59 06:59 06:59
Intake Total 240 / 240 720 / 720
Output Total 50 / 50 1000 / 1000
Balance 190 / 190 -280 / -280
Review of Systems
-
Unable to obtain full review of systems at this time due to: Dementia
History Source: Patient
Constitutional: Reports No Symptoms
EENT: Reports No Symptoms Reported
Respiratory: Reports No Symptoms
Cardiac: Reports No Symptoms
Abdomen/GI: Reports No Symptoms
Genitourinary: Reports No Symptoms
Musculoskeletal: Reports No Symptoms
Physical Exam
-
General: Well Developed, Well Nourished, No Apparent Distress and Comfortable; Negative Respiratory Distress
HEENT: Normocephalic, Atraumatic, Moist Mucous Membranes, Anicteric and PERRLA
Respiratory: Clear to Auscultation; Negative Wheezes, Rales or Rhonchi
Cardiac: Regular Rhythm and S1/S2; Negative Murmur or Rub
Breast: N/A
GI: Soft, Nontender and Nondistended
Genito-urinary: No Costovertebral Tender, Clear Urine and Other (Condom Catheter)
Musculoskeletal: No Clubbing, No Cyanosis and No Edema
Skin: Warm and Dry
Neuro: Awake and Alert
Psych: Calm
--- NOTE | 2024-12-16 08:36 | PN.CDI ---
CDI
- -
CDI:
Physician Documentation Request
Admit Date: 12/14/24 12:44
Dear Doctor,
Please review the following and provide your response in the progress notes.
Clinical Indicators:
Documentation in the record on _12/15 PN_ includes the diagnosis of acute hypoxic respiratory failure.
- 12/15 PN 'Acute Hypoxemic Respiratory Failure'
- physical exam 'Rales and Non Labored Respirations; Negative Wheezes or Rhonchi'
- Documented VS 2L O2, pulse ox > 93%
Based on the above information and the recognized standard for respiratory failure could you please verify this diagnoses is still accurate and reflective of the patient�s condition to ensure quality of the medical record.
Please clarify in the Progress Notes:
Acute hypoxic respiratory failure is/was present and is a clinical diagnosis based on (please include this additional support in the medical record)
After study acute hypoxic respiratory failure has been ruled out
Other (please specify)
Recognized standard criteria for respiratory failure includes:
(Source: ACP Hospitalist Jul 2013)
ABGs (1 or more)
�PO2 <60 or RA SpO2 <91%
�PcO2 >50 and pH <7.35
�pO2 decrease or pcO2 increase by 10 mmHg from baseline if known Symptoms:
�Tachypnea, SOB, dyspnea
�Pallor or cyanosis
�Anxiety or restlessness
�Use of accessory muscles
�Retractions (grunting in newborns)
�Unable to speak in complete sentences
Supplemental O2 requirement of 40% (5LPM) or more Intubation is not required
Use of terms such as suspected, likely, concern for, or probable (associated with a specific diagnosis that is being evaluated, monitored, or treated as if it exists) are acceptable and can be coded in the inpatient setting, when documented at the
time of discharge.
Thank you,
Nia Paige RN
CDI Specialist
Please use your independent medical judgment in providing your response.
--- NOTE | 2024-12-16 08:41 | PN.CDI ---
CDI
- -
CDI:
Physician Documentation Request
Admit Date: 12/14/24 12:44
Dear Doctor,
Please review the following and provide your response in the progress notes.
Clinical Indicators:
- RN skin assessments indicate Stage 1 buttock pressure injury, POA
Physician documentation of the type and location of wounds is required for compliant documentation. Based on the above clinical findings and your assessment, please provide the following in your progress note:
1. Location of the ulcer/wound, including laterality.
2. Type (etiology) of ulcer/wound:
- Diabetic ulcer
- Arterial (ischemic) ulcer
- Pressure (decubitus) ulcer
- Other
Use of terms such as suspected, likely, concern for, or probable (associated with a specific diagnosis that is being evaluated, monitored, or treated as if it exists) are acceptable and can be coded in the inpatient setting, when documented at the
time of discharge.
Thank you,
Nia Paige RN
CDI Specialist
Please use your independent medical judgment in providing your response.
*Source: National Pressure Ulcer Advisory Panel (NPUAP)
--- NOTE | 2024-12-16 10:00 | CM ---
Patient from [facility] with Hx Parkinsons with Dx PNA. Room air. Receiving IV/PO Abx. PT/OT; requires assist of 2, recommend skilled rehab. Per nursing; forgetful.
Spoke with Marisa, [facility]; they cannot accept him back if he is more confused and below his baseline for mobility, as his care needs currently exceed their capability to handle, and he would need to complete rehab first.
Spoke with Tai, patient's son; discussed patient's current functional status as per PT/OT with recommendation for rehab. Son agrees to short term SNF for rehab at [facility], and says that the family is hoping that the patient can stay there
for ferry terminal agent care. He is willing to complete paperwork for a LTC application as needed.
Spoke with Nita, [facility]; they will review the referral for STR and LTC.
[facility]
[2024-12-16 15:20] VITALS: BP 117/64
[2024-12-16] MEDS: LIPITOR 40 MG PO (17:42)
[2024-12-16] MEDS: ROCEPHIN 1000 MG IV (19:49)
[2024-12-16] MEDS: STERILE WATER FOR INJECTION 10 ML IV (19:49)
[2024-12-16 23:00] VITALS: BP 117/51
[2024-12-17] MEDS: SYNTHROID 25 MCG PO (05:06)
[2024-12-17 05:35] VITALS: BMI 25.3
--- NOTE | 2024-12-17 07:33 | W.PN.HOSP.TC ---
Addendum entered and electronically signed by Enzo Garcia MD 12/17/24 18:39:
Attending Addendum-
I saw and evaluated the patient. I reviewed the resident�s note and agree with findings and plan as documented in the resident�s note. Sub: feels weak. Has mild cough. Denies fevers chills. Full 12 point ROS reviewed and negative except as
documented Exam: Vitals reviewed in chart GEN-NAD heart RRR lungs bibasilar rhonchi no wheeze abd soft LE no edema
PLAN:
#Community-acquired pneumonia
- Leukocytosis resolved
- Blood cultures NGTD
- Ceftriaxone/doxycycline day #4
- transition to PO on DC
- Continue benzonatate, guaifenesin
#Stage 1 sacral ulcer-POA
-wound care
#Chronic anemia
- Hemoglobin stable
- Continue ferrous sulfate
#Paroxysmal atrial fibrillation with ICD
- Continue amiodarone
- Not on anticoagulation- fall risk
#CAD status post CABG
- has ICD
- Continue aspirin, statin
- Continue metoprolol
- no previous echo for comparison
#History of orthostatic hypotension
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
#Parkinson's disease
- Continue carbidopa levodopa
#Anxiety/depression
- Continue buspirone
#Ambulatory dysfunction/frequent falls
#Moderate Cognitive impairment
#BPH
- Continue finasteride
#Hypothyroidism
- Continue levothyroxine
#Constipation
- Continue bowel regimen
#Insomnia
- Continue ramelteon
Full code->DNR
DVT prophylaxis�heparin
Regular diet
Dispo- [place]- son requesting DC to [facility] for SNF then LTC, DC then bed available/auth pending - medically stable for DC
Time spent coordinating care, review of plan of care with resident, personally reviewed records in EMR, med rec, consults, notes, labs, radiology, d/w nursing,CM � 35 mins
Original Note:
Today's Communication/Plan
-
C/w Abx, if D/c transition to oral abx to finish 7d course
wean o2 as tolerated
Pending authorization for [facility]
Assessment / Plan
Assessment / Plan
84 year old male presenting from [facility] for symptoms of shortness of breath and cough
Plan to D/c to [facility] for SNF followed by custodial rehab. Soonest he would be discharged out be tomorrow.
ACUTE MANAGING
#Community Acquired Pneumonia
- CXR + for bibasilar opacifications suspicious for pneumonia, labs showing Leukocytosis
- COVID/Flu negative
- Blood Cx NG x24hr, MRSA negative
- C/w Ceftriaxone/Doxy d4, c/w benzonatate prn, guaifenesin
- requiring O2 during exercise/exertion. Will continue to wean as tolerated
#Ambulatory Dysfunction
- PT/OT recommending SNF, as above
#Stage 1 buttock pressure injury
- present on admission, dry and intact
- stable, barrier ointment provided by wound care
CHRONIC STABLE
#Chronic Normocytic Anemia - hgb stable, c/t monitor, transfuse if <7, c/w home ferrous sulfate
#Paroxysmal atrial fibrillation w/ ICD -c/w amiodarone
#CAD s/p CABG - c/w aspirin, statin, metoprolol
#History of orthostatic hypotension
#Essential hypertension - pressures stable, will c/t monitor
#Parkinson's disease - c/w carbidopa levodopa
#Anxiety/depression - c/w buspar
#BPH - c/w finasteride
#Hypothyroidism - c/w levothyroxine
#Constipation - c/w bowel regimen
#Insomnia - c/w ramelteon
Code Status: DNR
DVT PPx: Heparin 5000 q12
Diet: Regular diet
Anticipated Discharge: Within 24 hours
Subjective/Interval History
-
Date of Service: December 17, 2024
Patient denies any acute complaints, though I feel he is a limited historian due to dementia.
Objective Data
-
Vital Signs:
Vital Signs
Temp Pulse Resp BP Pulse Ox
98.1 F 72 18 117/51 94
12/16/24 23:00 12/16/24 23:00 12/16/24 23:00 12/16/24 23:00 12/16/24 23:00
I&O
12/16/24 12/17/24 12/18/24
06:59 06:59 06:59
Intake Total 720 / 720 960 / 960
Output Total 1000 / 1000 1150 / 1150
Balance -280 / -280 -190 / -190
Review of Systems
-
Unable to obtain full review of systems at this time due to: Dementia
History Source: Patient
Constitutional: Reports No Symptoms
EENT: Reports No Symptoms Reported
Respiratory: Reports No Symptoms
Cardiac: Reports No Symptoms
Abdomen/GI: Reports No Symptoms
Genitourinary: Reports No Symptoms
Musculoskeletal: Reports No Symptoms
Neuro: Reports No Symptoms
Physical Exam
-
General: Well Developed, Well Nourished, No Apparent Distress, Comfortable and Conversant
HEENT: Normocephalic, Atraumatic, Moist Mucous Membranes, Anicteric, [place] Conjunctivae and Oxygen
Respiratory: Rales (LLL); Negative Wheezes
Cardiac: Regular Rhythm and S1/S2; Negative Murmur or Rub
Breast: N/A
GI: Soft, Nontender, Nondistended and Normal Bowel Sounds
Musculoskeletal: No Clubbing, No Cyanosis and No Edema
Skin: Warm and Dry
Neuro: Awake and Alert
Psych: Calm
[2024-12-17] MEDS: HEPARIN 5000 UNITS SC ×2 (07:36→20:09)
[2024-12-17] MEDS: MIRALAX PO ×2 (07:36→08:17)
[2024-12-17] MEDS: PROSCAR 5 MG PO (07:40)
[2024-12-17] MEDS: VIBRAMYCIN 100 MG PO ×2 (07:40→20:09)
[2024-12-17] MEDS: MUCINEX 600 MG PO ×2 (07:40→20:09)
[2024-12-17] MEDS: BUSPAR 5 MG PO ×2 (07:41→20:10)
[2024-12-17] MEDS: VENTOLIN NEBULES 2.5 MG INH ×4 (07:41→19:36)
[2024-12-17] MEDS: SINEMET 25-100 2 TABLET PO ×2 (07:41→20:09)
[2024-12-17] MEDS: PACERONE 200 MG PO (07:42)
[2024-12-17] MEDS: SENOKOT 17.2 MG PO (07:44)
[2024-12-17] MEDS: OSCAL 500 + D 500 MG PO ×2 (07:44→20:09)
[2024-12-17] MEDS: FEOSOL 325 MG PO (07:44)
[2024-12-17] MEDS: LOW STRENGTH ASPIRIN 81 MG PO (07:45)
[2024-12-17] MEDS: TOPROL XL 25 MG PO (07:45)
[2024-12-17 08:31] VITALS: BP 130/61
[2024-12-17 08:54] VITALS: BP 112/58; BP 79/49; PULSE 77; O2SAT 91
--- NOTE | 2024-12-17 12:15 | CM ---
Spoke with Kai at [facility]
Requested updated notes - sent via careport
[facility] will review referral & get back to CM if they will accept
PLAN: SNF, pending acceptance/bed availability
[2024-12-17 15:22] VITALS: BP 124/64
[2024-12-17] MEDS: LIPITOR 40 MG PO (17:35)
[2024-12-17] MEDS: ROCEPHIN 1000 MG IV (20:10)
[2024-12-17] MEDS: STERILE WATER FOR INJECTION 10 ML IV (20:10)
[2024-12-17 23:00] VITALS: BP 121/53
[2024-12-18] MEDS: TYLENOL 650 MG PO (01:19)
[2024-12-18] MEDS: SYNTHROID 25 MCG PO (05:42)
[2024-12-18 06:00] VITALS: BMI 25.4
[2024-12-18 07:00] VITALS: BP 122/66
[2024-12-18] MEDS: PROSCAR 5 MG PO (07:30)
[2024-12-18] MEDS: LOW STRENGTH ASPIRIN 81 MG PO (07:30)
[2024-12-18] MEDS: SINEMET 25-100 2 TABLET PO ×2 (07:30→20:34)
[2024-12-18] MEDS: FEOSOL 325 MG PO (07:30)
[2024-12-18] MEDS: TOPROL XL 25 MG PO (07:30)
[2024-12-18] MEDS: SENOKOT 17.2 MG PO (07:30)
[2024-12-18] MEDS: MIRALAX 17 GRAMS PO (07:30)
[2024-12-18] MEDS: MUCINEX 600 MG PO ×2 (07:30→20:33)
[2024-12-18] MEDS: PACERONE 200 MG PO (07:30)
[2024-12-18] MEDS: BUSPAR 5 MG PO ×2 (07:31→20:33)
[2024-12-18] MEDS: VIBRAMYCIN 100 MG PO ×2 (07:31→20:33)
[2024-12-18] MEDS: HEPARIN 5000 UNITS SC ×2 (07:31→20:34)
[2024-12-18] MEDS: OSCAL 500 + D 500 MG PO ×2 (07:32→20:33)
[2024-12-18] MEDS: VENTOLIN NEBULES 2.5 MG INH ×4 (07:43→19:33)
--- NOTE | 2024-12-18 11:28 | W.PN.HOSP.TC ---
Today's Communication/Plan
-
Assessment / Plan
Assessment / Plan
General: No Apparent Distress, Comfortable and Conversant
HEENT: NormoCephalic, Moist mucous membranes, Atraumatic
Respiratory: Clear and Non Labored Respirations
Cardiac: S1/S2 and Regular Rhythm; No Rub or Gallop
GI: Soft, Non Tender, Non Distended and Normal Bowel Sounds
Musculoskeletal: No Edema, no deformity
: Condom cath in place draining clear yellow urine
Neuro: Awake, Alert, resting tremor, confused
Psych: Calm and cooperative, confused
84 year old male presenting from [facility] for symptoms of shortness of breath and cough
Plan to D/c to [facility] for SNF followed by watermelon inspector rehab. Medically stable.
ACUTE MANAGING
#Community Acquired Pneumonia
- CXR + for bibasilar opacifications suspicious for pneumonia, labs showing Leukocytosis
- COVID/Flu negative
- Blood Cx NG x24hr, MRSA negative
- C/w Ceftriaxone/Doxy d5, c/w benzonatate prn, guaifenesin
- requiring O2 during exercise/exertion. Will continue to wean as tolerated
#Ambulatory Dysfunction
- PT/OT recommending SNF, as above
#Stage 1 buttock pressure injury
- present on admission, dry and intact
- stable, barrier ointment provided by wound care
CHRONIC STABLE
#Chronic Normocytic Anemia - hgb stable, c/t monitor, transfuse if <7, c/w home ferrous sulfate
#Paroxysmal atrial fibrillation w/ ICD -c/w amiodarone
#CAD s/p CABG - c/w aspirin, statin, metoprolol
#History of orthostatic hypotension
#Essential hypertension - pressures stable, will c/t monitor
#Parkinson's disease - c/w carbidopa levodopa
#Anxiety/depression - c/w buspar
#BPH - c/w finasteride
#Hypothyroidism - c/w levothyroxine
#Constipation - c/w bowel regimen
#Insomnia - c/w ramelteon
Code Status: DNR
DVT PPx: Heparin 5000 q12
Diet: Regular diet
Anticipated Discharge: 24 - 48 hours
Subjective/Interval History
-
Date of Service: December 18, 2024
Patient was seen and examined at bedside this morning. Comfortable in no complaints. Eating breakfast. Awaiting SNF placement.
Objective Data
-
Vital Signs:
Vital Signs
Temp Pulse Resp BP Pulse Ox
97.7 F 70 16 122/66 96
12/18/24 07:00 12/18/24 07:46 12/18/24 07:46 12/18/24 07:00 12/18/24 07:46
I&O
12/17/24 12/18/24 12/19/24
06:59 06:59 06:59
Intake Total 960 / 960 960 / 960
Output Total 1150 / 1150 1750 / 1750
Balance -190 / -190 -790 / -790
Review of Systems
-
Unable to obtain full review of systems at this time due to: Dementia
History Source: Patient
All other systems: Reviewed and negative
Physical Exam
-
General: No Apparent Distress
[2024-12-18 15:00] VITALS: BP 105/50
[2024-12-18] MEDS: LIPITOR 40 MG PO (17:36)
[2024-12-18] MEDS: ROCEPHIN 1000 MG IV (20:34)
[2024-12-18] MEDS: STERILE WATER FOR INJECTION 10 ML IV (20:34)
[2024-12-18 23:43] VITALS: BP 101/56
[2024-12-19 03:57] VITALS: BMI 24.8
[2024-12-19] MEDS: SYNTHROID 25 MCG PO (05:15)
[2024-12-19 07:00] VITALS: BP 112/58
[2024-12-19] MEDS: VIBRAMYCIN 100 MG PO ×2 (07:31→21:51)
[2024-12-19] MEDS: SINEMET 25-100 2 TABLET PO ×2 (07:31→21:51)
[2024-12-19] MEDS: MUCINEX 600 MG PO ×2 (07:31→21:51)
[2024-12-19] MEDS: SENOKOT 17.2 MG PO (07:31)
[2024-12-19] MEDS: TOPROL XL 25 MG PO (07:31)
[2024-12-19] MEDS: BUSPAR 5 MG PO ×2 (07:32→21:50)
[2024-12-19] MEDS: PACERONE 200 MG PO (07:32)
[2024-12-19] MEDS: PROSCAR 5 MG PO (07:32)
[2024-12-19] MEDS: LOW STRENGTH ASPIRIN 81 MG PO (07:32)
[2024-12-19] MEDS: HEPARIN 5000 UNITS SC ×2 (07:32→21:51)
[2024-12-19] MEDS: OSCAL 500 + D 500 MG PO ×2 (07:32→21:50)
[2024-12-19] MEDS: FEOSOL 325 MG PO (07:32)
[2024-12-19] MEDS: MIRALAX 17 GRAMS PO (07:33)
[2024-12-19] MEDS: VENTOLIN NEBULES 2.5 MG INH ×4 (07:43→19:24)
[2024-12-19 15:00] VITALS: BP 107/50
--- NOTE | 2024-12-19 15:09 | W.PN.HOSP.TC ---
Today's Communication/Plan
-
Assessment / Plan
Assessment / Plan
General: No Apparent Distress, Comfortable and Conversant
HEENT: NormoCephalic, Moist mucous membranes, Atraumatic
Respiratory: Clear and Non Labored Respirations
Cardiac: S1/S2 and Regular Rhythm; No Rub or Gallop
GI: Soft, Non Tender, Non Distended and Normal Bowel Sounds
Musculoskeletal: No Edema, no deformity
: Condom cath in place draining clear yellow urine
Neuro: Awake, Alert, resting tremor, confused
Psych: Calm and cooperative, confused
84 year old male presenting from [facility] for symptoms of shortness of breath and cough
Plan to D/c to [facility] for SNF followed by extermination supervisor rehab. Medically stable.
ACUTE MANAGING
#Community Acquired Pneumonia
- CXR + for bibasilar opacifications suspicious for pneumonia, labs showing Leukocytosis
- COVID/Flu negative
- Blood Cx NG x24hr, MRSA negative
- C/w Ceftriaxone/Doxy d5, c/w benzonatate prn, guaifenesin
- requiring O2 during exercise/exertion. Will continue to wean as tolerated
#Ambulatory Dysfunction
- PT/OT recommending SNF, as above
#Stage 1 buttock pressure injury
- present on admission, dry and intact
- stable, barrier ointment provided by wound care
CHRONIC STABLE
#Chronic Normocytic Anemia - hgb stable, c/t monitor, transfuse if <7, c/w home ferrous sulfate
#Paroxysmal atrial fibrillation w/ ICD -c/w amiodarone
#CAD s/p CABG - c/w aspirin, statin, metoprolol
#History of orthostatic hypotension
#Essential hypertension - pressures stable, will c/t monitor
#Parkinson's disease - c/w carbidopa levodopa
#Anxiety/depression - c/w buspar
#BPH - c/w finasteride
#Hypothyroidism - c/w levothyroxine
#Constipation - c/w bowel regimen
#Insomnia - c/w ramelteon
Code Status: DNR
DVT PPx: Heparin 5000 q12
Diet: Regular diet
Anticipated Discharge: 24 - 48 hours
Subjective/Interval History
-
Date of Service: December 19, 2024
Patient was seen and examined at bedside this morning. He had spilled coffee on his shirt during breakfast and was in the middle of changing. No other complaints. Awaiting SNF placement.
Objective Data
-
Vital Signs:
Vital Signs
Temp Pulse Resp BP Pulse Ox
97.7 F 73 16 112/58 93
12/19/24 07:00 12/19/24 11:11 12/19/24 11:11 12/19/24 07:00 12/19/24 11:11
I&O
12/18/24 12/19/24 12/20/24
06:59 06:59 06:59
Intake Total 960 / 960 960 / 960
Output Total 1750 / 1750 750 / 750
Balance -790 / -790 210 / 210
Review of Systems
-
Unable to obtain full review of systems at this time due to: Dementia
History Source: Patient
All other systems: Reviewed and negative
Physical Exam
-
General: No Apparent Distress
[2024-12-19] MEDS: LIPITOR 40 MG PO (18:32)
[2024-12-19] MEDS: STERILE WATER FOR INJECTION 10 ML IV (21:50)
[2024-12-19] MEDS: ROCEPHIN 1000 MG IV (21:51)
[2024-12-19 23:00] VITALS: BP 115/66
[2024-12-20] MEDS: SYNTHROID 25 MCG PO (04:54)
[2024-12-20 06:00] VITALS: BMI 25.1
[2024-12-20] MEDS: VENTOLIN NEBULES 2.5 MG INH ×4 (07:26→19:09)
[2024-12-20 07:33] VITALS: BP 118/66
[2024-12-20] MEDS: MUCINEX 600 MG PO ×2 (08:29→20:42)
[2024-12-20] MEDS: SINEMET 25-100 2 TABLET PO ×2 (08:29→20:42)
[2024-12-20] MEDS: SENOKOT 17.2 MG PO (08:29)
[2024-12-20] MEDS: PROSCAR 5 MG PO (08:29)
[2024-12-20] MEDS: TOPROL XL 25 MG PO (08:29)
[2024-12-20] MEDS: LOW STRENGTH ASPIRIN 81 MG PO (08:29)
[2024-12-20] MEDS: PACERONE 200 MG PO (08:30)
[2024-12-20] MEDS: OSCAL 500 + D 500 MG PO ×2 (08:30→20:42)
[2024-12-20] MEDS: BUSPAR 5 MG PO ×2 (08:30→20:42)
[2024-12-20] MEDS: FEOSOL 325 MG PO (08:30)
[2024-12-20] MEDS: HEPARIN 5000 UNITS SC ×2 (08:30→20:42)
[2024-12-20] MEDS: MIRALAX 17 GRAMS PO (08:30)
--- NOTE | 2024-12-20 09:42 | W.PN.HOSP.TC ---
Addendum entered and electronically signed by Enzo Garcia MD 12/20/24 21:29:
Attending Addendum-
I saw and evaluated the patient. I reviewed the resident�s note and agree with findings and plan as documented in the resident�s note. Sub: laying in bed. Called by PT re decreased responsiveness during PT eval and lowering self to ground. Patietn
has no recollection of event. No complaints. Denies fevers chills. Full 12 point ROS reviewed and negative except as documented Exam: Vitals reviewed in chart GEN-NAD heart RRR lungs CTA B/L no wheeze abd soft LE no edema Skin Dry Neuro AAO x 1-2
PLAN:
# Presyncope
- likely from deconditioning and poor appetite
- appears dehydrated
- start IVF
- encourage PO
#Community-acquired pneumonia
- Leukocytosis resolved
- Blood cultures NGTD
- Ceftriaxone/doxycycline - completed 7 days
- Continue benzonatate, guaifenesin
#Stage 1 sacral ulcer-POA
-wound care
#Chronic anemia
- Hemoglobin stable
- Continue ferrous sulfate
#Paroxysmal atrial fibrillation with ICD
- Continue amiodarone
- cont metoprolol
- Not on anticoagulation- fall risk
#CAD status post CABG
- has ICD
- Continue aspirin, statin
- Continue metoprolol
- no previous echo for comparison
#History of orthostatic hypotension
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
#Parkinson's disease
- Continue carbidopa levodopa
#Anxiety/depression
- Continue buspirone
#Ambulatory dysfunction/frequent falls
#Moderate Cognitive impairment
- likely progression - OP NC eval
#BPH
- Continue finasteride
#Hypothyroidism
- Continue levothyroxine
#Constipation
- Continue bowel regimen
#Insomnia
- Continue ramelteon
Full code->DNR
DVT prophylaxis�heparin
Regular diet
Dispo- originally from [place]-DC to [facility] for SNF in AM
Time spent coordinating care, review of plan of care with resident, personally reviewed records in EMR, med rec, consults, notes, labs, radiology, d/w nursing,CM � 51 mins
Original Note:
Today's Communication/Plan
-
pending placement at SNF
Assessment / Plan
Assessment / Plan
84 year old male presenting from for symptoms of shortness of breath and cough
Plan to D/c to [facility] for SNF [facility]. Medically stable.
ACUTE MANAGING
#Community Acquired Pneumonia
- CXR + for bibasilar opacifications suspicious for pneumonia, labs showing Leukocytosis
- COVID/Flu negative
- Blood Cx NG x24hr, MRSA negative
- Completed 7d Ceftriaxone/Doxy, c/w benzonatate prn, guaifenesin
- Off O2
#Ambulatory Dysfunction
- PT/OT recommending SNF, as above
#Stage 1 buttock pressure injury
- present on admission, dry and intact
- stable, barrier ointment provided by wound care
CHRONIC STABLE
#Chronic Normocytic Anemia - hgb stable, c/t monitor, transfuse if <7, c/w home ferrous sulfate
#Paroxysmal atrial fibrillation w/ ICD -c/w amiodarone
#CAD s/p CABG - c/w aspirin, statin, metoprolol
#History of orthostatic hypotension
#Essential hypertension - pressures stable, will c/t monitor
#Parkinson's disease - c/w carbidopa levodopa
#Anxiety/depression - c/w buspar
#BPH - c/w finasteride
#Hypothyroidism - c/w levothyroxine
#Constipation - c/w bowel regimen
#Insomnia - c/w ramelteon
Code Status: DNR
DVT PPx: Heparin 5000 q12
Diet: Regular diet
Anticipated Discharge: 24 - 48 hours
Subjective/Interval History
-
Date of Service: December 20, 2024
Feeling well today, off O2. No new fevers or chills.
Objective Data
-
Vital Signs:
Vital Signs
Temp Pulse Resp BP Pulse Ox
97.5 F 72 17 118/66 94
12/20/24 07:33 12/20/24 07:33 12/20/24 07:33 12/20/24 07:33 12/20/24 07:33
I&O
12/19/24 12/20/24 12/21/24
06:59 06:59 06:59
Intake Total 960 / 960 480 / 480
Output Total 750 / 750 400 / 400
Balance 210 / 210 80 / 80
Review of Systems
-
History Source: Patient
All other systems: Reviewed and negative
Constitutional: Reports No Symptoms
EENT: Reports No Symptoms Reported
Respiratory: Reports No Symptoms
Cardiac: Reports No Symptoms
Abdomen/GI: Reports No Symptoms
Breast: Reports N/A
Genitourinary: Reports No Symptoms
Musculoskeletal: Reports No Symptoms
Skin: Reports No Symptoms
Physical Exam
-
General: Well Developed, Well Nourished, No Apparent Distress, Comfortable and Conversant
HEENT: Normocephalic, Atraumatic, Moist Mucous Membranes, Anicteric, [place] Conjunctivae, PERRLA, Nose Appears Normal and Ears Appear Normal
Respiratory: Crackles; Negative Wheezes or Rales
Cardiac: Regular Rhythm and S1/S2; Negative Murmur or Rub
GI: Soft, Nontender, Nondistended and Normal Bowel Sounds
Genito-urinary: No Costovertebral Tender
Musculoskeletal: No Clubbing, No Cyanosis and No Edema
Skin: Warm, Dry and IV Access / Catheter Site
Neuro: Awake, Alert and Oriented
[2024-12-20 09:45] VITALS: BP 111/45; BP 114/57; BP 73/49; PULSE 70; PULSE 73; O2SAT 95
[2024-12-20 09:51] VITALS: BP 111/45; BP 114/57; BP 73/49; PULSE 72; PULSE 87; O2SAT 95
--- NOTE | 2024-12-20 10:25 | CM ---
Addendum entered by Esme Latham 12/20/24 10:36:
Per resident, d/c on hold for today.
[facility]
report# [phone]
fax# [phone]
Original Note:
Spoke with Nita/[facility] they would like a video conference with patient.
CM spoke with risk management okay for video as long as family consents.
Spoke wit son Tai he is agreeable to video.
Per Nita amble to accept patient, no auth required.
Spoke with GREG parker completed email copy to [email or web address]
ambulance transport forms completed, will place on chart.
TT to resident for dc orders.
Plan: [facility] today via ambulance transport.
[2024-12-20 10:57] LABS: % Basophils 1.1 % (0-2); % Eosinophils 4.3 % (0-6); % Immature Granulocytes 0.3 % (0-0.5); % Lymphocytes 7.4 % (20.5-51.1); % Monocytes 8.4 % (1.7-9.3); % Neutrophils 78.5 % (42.2-75.2); Absolute Basophils 0.1 10^3/uL (0-0.2); Absolute Eosinophils 0.4 10^3/uL (0-0.7); Absolute Lymphocytes 0.7 10^3/uL (1.2-3.4); Absolute Monocytes 0.8 10^3/uL (0.1-0.6); Absolute Neutrophils 7.5 10^3/uL (1.4-6.5); Hemoglobin 9.4 g/dL (13.0-18.0); Mean Corp Hgb Conc. 32.4 g/dL (33.0-37.0); Mean Corpuscular Hgb 29.9 pg (27.0-31.0); Mean Corpuscular Volume 92.4 fL (80.0-94.0); Mean Platelet Volume 8.9 fL (7.4-10.4); Nucleated Red Blood Cells % 0 % (-); Platelet Count 357 10^3/uL (130-400); Red Blood Cell Count 3.14 10^6/uL (4.70-6.10); Red Cell Dist. Width 14.7 % (11.5-14.5); White Blood Cell Count 9.5 10^3/uL (4.8-10.8)
[2024-12-20 11:09] LABS: ALT (SGPT) < 10 U/L (0-50); AST (SGOT) 36 U/L (17-59); Albumin 2.7 g/dl (3.5-5.0); Alkaline Phosphatase 101 U/L (38-126); Blood Urea Nitrogen 17 mg/dl (9-20); Calcium 9.2 mg/dl (8.4-10.2); Carbon Dioxide 25 mmol/L (22-30); Chloride 104 mmol/L (98-107); Estimated Creatinine Clearance 61 ml/min; Glucose 96 mg/dl (70-99); Potassium 4.4 mmol/L (3.5-5.1); Sodium 137 mmol/L (135-145); Total Bilirubin 0.4 mg/dl (0.2-1.3); Total Protein 5.3 g/dl (6.3-8.2); eGFR > 60.00
[2024-12-20 15:40] VITALS: BP 123/68
[2024-12-20] MEDS: LIPITOR 40 MG PO (18:02)
[2024-12-20 23:00] VITALS: BP 113/57
[2024-12-20] MEDS: NSS 1000 IV (23:25)
[2024-12-21] MEDS: SYNTHROID 25 MCG PO (05:38)
[2024-12-21 07:10] LABS: % Basophils 0.9 % (0-2); % Eosinophils 5.4 % (0-6); % Immature Granulocytes 0.5 % (0-0.5); % Lymphocytes 10.2 % (20.5-51.1); % Monocytes 7.3 % (1.7-9.3); % Neutrophils 75.7 % (42.2-75.2); Absolute Basophils 0.1 10^3/uL (0-0.2); Absolute Eosinophils 0.6 10^3/uL (0-0.7); Absolute Immature Granulocytes 0.1 10^3/uL (0-0.05); Absolute Lymphocytes 1.1 10^3/uL (1.2-3.4); Absolute Monocytes 0.8 10^3/uL (0.1-0.6); Absolute Neutrophils 8.1 10^3/uL (1.4-6.5); Hematocrit 31.4 % (39.0-52.0); Hemoglobin 9.9 g/dL (13.0-18.0); Mean Corp Hgb Conc. 31.5 g/dL (33.0-37.0); Mean Corpuscular Hgb 29.1 pg (27.0-31.0); Mean Corpuscular Volume 92.4 fL (80.0-94.0); Mean Platelet Volume 8.8 fL (7.4-10.4); Nucleated Red Blood Cells % 0 % (-); Platelet Count 401 10^3/uL (130-400); Red Cell Dist. Width 14.8 % (11.5-14.5); White Blood Cell Count 10.7 10^3/uL (4.8-10.8)
[2024-12-21] MEDS: VENTOLIN NEBULES 2.5 MG INH (07:18)
[2024-12-21 07:23] VITALS: BP 90/47
[2024-12-21] MEDS: SINEMET 25-100 2 TABLET PO (08:23)
[2024-12-21] MEDS: HEPARIN 5000 UNITS SC (08:23)
[2024-12-21] MEDS: TOPROL XL 25 MG PO (08:23)
[2024-12-21] MEDS: FEOSOL 325 MG PO (08:23)
[2024-12-21] MEDS: OSCAL 500 + D 500 MG PO (08:23)
[2024-12-21] MEDS: BUSPAR 5 MG PO (08:23)
[2024-12-21] MEDS: MUCINEX 600 MG PO (08:23)
[2024-12-21] MEDS: ProAmatine 2.5 MG PO ×2 (08:23→12:47)
[2024-12-21] MEDS: SENOKOT 17.2 MG PO (08:23)
[2024-12-21] MEDS: LOW STRENGTH ASPIRIN 81 MG PO (08:23)
[2024-12-21 08:28] VITALS: BP 103/54; BP 116/85; BP 85/45; PULSE 73; PULSE 78
[2024-12-21] MEDS: PACERONE 200 MG PO (08:29)
[2024-12-21] MEDS: MIRALAX 17 GRAMS PO (08:29)
[2024-12-21] MEDS: PROSCAR 5 MG PO (08:29)
--- NOTE | 2024-12-21 09:30 | CM ---
Spoke with Kai at [facility], bed available
tt resident
IMM signed in chart
PLAN: [facility]
report# [phone]
fax# [phone]
[2024-12-21 09:41] LABS: ALT (SGPT) 19 U/L (0-50); AST (SGOT) 38 U/L (17-59); Albumin 2.9 g/dl (3.5-5.0); Alkaline Phosphatase 107 U/L (38-126); Blood Urea Nitrogen 16 mg/dl (9-20); Calcium 9.5 mg/dl (8.4-10.2); Carbon Dioxide 22 mmol/L (22-30); Chloride 105 mmol/L (98-107); Estimated Creatinine Clearance 61 ml/min; Glucose 86 mg/dl (70-99); Potassium 4.6 mmol/L (3.5-5.1); Sodium 137 mmol/L (135-145); Total Bilirubin 0.6 mg/dl (0.2-1.3); Total Protein 5.3 g/dl (6.3-8.2); eGFR > 60.00
[2024-12-21] MEDS: NSS IV (10:05)
[2024-12-21 11:26] VITALS: BP 101/51
[2024-12-21 12:00] VITALS: BP 101/51
--- NOTE | 2024-12-21 12:26 | W.PN.HOSP.TC ---
Addendum entered and electronically signed by Enzo Garcia MD 12/21/24 23:35:
Attending Addendum-
I saw and evaluated the patient. I reviewed the resident�s note and agree with findings and plan as documented in the resident�s note. Sub: No further episodes of presyncope. 'I feel good im ready to go today' No complaints. Denies fevers chills CP
palps. Full 12 point ROS reviewed and negative except as documented Exam: Vitals reviewed in chart GEN-NAD heart RRR lungs CTA B/L no wheeze abd soft LE no edema Skin Dry Neuro AAO x 1-2
PLAN:
# Hypotension
- resolved
- likely from deconditioning and poor appetite
- appears dehydrated
- start midodrine ad hold parameters for metoprolol
-encourage PO
#Community-acquired pneumonia
- Leukocytosis resolved
- Blood cultures NGTD
- Ceftriaxone/doxycycline - completed 7 days
- Continue benzonatate, guaifenesin
#Stage 1 sacral ulcer-POA
-wound care
#Chronic anemia
- Hemoglobin stable
- Continue ferrous sulfate
#Paroxysmal atrial fibrillation with ICD
- Continue amiodarone
- cont metoprolol
- Not on anticoagulation- fall risk
#CAD status post CABG
- has ICD
- Continue aspirin, statin
- Continue metoprolol
- no previous echo for comparison
#History of orthostatic hypotension-add midodrine
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
#Parkinson's disease
- Continue carbidopa levodopa
#Anxiety/depression
- Continue buspirone
#Ambulatory dysfunction/frequent falls
#Moderate Cognitive impairment
- likely progression - OP NC eval
#BPH
- Continue finasteride
#Hypothyroidism
- Continue levothyroxine
#Constipation
- Continue bowel regimen
#Insomnia
- Continue ramelteon
Full code->DNR
DVT prophylaxis�heparin
Regular diet
Dispo- originally from [facility] to [facility] for SNF
Time spent coordinating care, DC planning, review of DC plan of care with resident, transition of care, review of records, med rec/scripts sent electronically, consults, notes, d/w consultants, nursing, family, and CM� 32 mins
Original Note:
Today's Communication/Plan
-
d/c today to [facility]
Will send on Midodrine prn w/ holding parameters for Metoprolol XL
Assessment / Plan
Assessment / Plan
84 year old male presenting from for symptoms of shortness of breath and cough
Plan to D/c to [facility] for SNF followed by terminal superintendent rehab. Medically stable.
ACUTE MANAGING
#Community Acquired Pneumonia
- CXR + for bibasilar opacifications suspicious for pneumonia, labs showing Leukocytosis
- COVID/Flu negative
- Blood Cx NG x24hr, MRSA negative
- Completed 7d Ceftriaxone/Doxy, c/w benzonatate prn, guaifenesin
- Off O2
- stable for d/c
#Ambulatory Dysfunction
- PT/OT recommending SNF, as above
- H/o orthostasis complicating PT, cleared today on Midodrine prn
#Stage 1 buttock pressure injury
- present on admission, dry and intact
- stable, barrier ointment provided by wound care
CHRONIC STABLE
#Chronic Normocytic Anemia - hgb stable, c/t monitor, transfuse if <7, c/w home ferrous sulfate
#Paroxysmal atrial fibrillation w/ ICD -c/w amiodarone
#CAD s/p CABG - c/w aspirin, statin, metoprolol
#History of orthostatic hypotension
#Essential hypertension - pressures stable, will c/t monitor
#Parkinson's disease - c/w carbidopa levodopa
#Anxiety/depression - c/w buspar
#BPH - c/w finasteride
#Hypothyroidism - c/w levothyroxine
#Constipation - c/w bowel regimen
#Insomnia - c/w ramelteon
Code Status: DNR
DVT PPx: Heparin 5000 q12
Diet: Regular diet
Anticipated Discharge: Today
Subjective/Interval History
-
Date of Service: December 21, 2024
Feels well this morning, no acute complaints.
Objective Data
-
Labs:
Laboratory Results
12/21/24
06:32
WBC 10.7
Hgb 9.9 L
Hct 31.4 L
Plt Count 401 H
Sodium 137
Potassium 4.6
Chloride 105
Carbon Dioxide 22
BUN 16
Creatinine 0.8
Glucose 86
Calcium 9.5
Total Bilirubin 0.6
AST 38
ALT 19
Alkaline Phosphatase 107
Vital Signs:
Vital Signs
Temp Pulse Resp BP Pulse Ox
97.6 F 84 18 90/47 92
12/21/24 07:23 12/21/24 07:23 12/21/24 07:23 12/21/24 07:23 12/21/24 07:30
I&O
12/20/24 12/21/24 12/22/24
06:59 06:59 06:59
Intake Total 480 / 480 790 / 790
Output Total 400 / 400
Balance 80 / 80 790 / 790
Review of Systems
-
Unable to obtain full review of systems at this time due to: Dementia
History Source: Patient
Constitutional: Reports No Symptoms
EENT: Reports No Symptoms Reported
Respiratory: Reports No Symptoms
Cardiac: Reports No Symptoms
Abdomen/GI: Reports No Symptoms
Musculoskeletal: Reports No Symptoms
Neuro: Reports No Symptoms
Physical Exam
-
General: Well Developed, Well Nourished, No Apparent Distress and Comfortable
HEENT: Normocephalic, Atraumatic, Moist Mucous Membranes, Anicteric and [place] Conjunctivae
Respiratory: Crackles; Negative Wheezes or Rales
Cardiac: Regular Rhythm and S1/S2; Negative Murmur or Rub
GI: Soft, Nontender, Nondistended and Normal Bowel Sounds
Musculoskeletal: No Clubbing, No Cyanosis and No Edema
Skin: Warm, Dry and IV Access / Catheter Site
Neuro: Awake, Alert and Oriented
Psych: Calm
--- NOTE | 2024-12-21 12:51 | W.DCSUMMARY ---
Addendum entered and electronically signed by Enzo Garcia MD 12/21/24 23:36:
Read, reviewed, and agree. See same day progress note for additional details.
Bradly Garcia MD
Original Note:
Documented by User: Danny Chase MD, Resident 12/21/24 13:02
Discharge Summary
Discharge Data
Date of Admission: 12/14/24
Date of Discharge: 12/21/24
Total time spent discharging patient (in min): >30m
-
Pending Results: No
Hospital Course
Discharging Physician : Dr. Danny Chase, Dr. Enzo Garcia
Disposition : SNF
Primary care physician : Dr. Nessa Garner
Principal Discharge diagnosis : Community Acquired Pneumonia, Ambulatory Dysfunction, History of orthostatic hypotension, Stage 1 buttock pressure injury
Chronic Discharge diagnosis : Normocytic Anemia, Paroxysmal Afib w/ ICD, CAD s/p CABG, Essential Hypertension, Parkinson's Disease, Anxiety/Depression, BPH, Hypothyroidism, Constipation, Insomnia
Hospital Course :
84 year old male presenting from [place] for symptoms of shortness of breath and cough
#Community Acquired Pneumonia
- CXR + for bibasilar opacifications suspicious for pneumonia, labs showing Leukocytosis
- COVID/Flu negative
- Blood Cx NG x72hr, MRSA negative
- Completed 7d Ceftriaxone/Doxy,
- given benzonatate prn and guaifenesin for cough
- Required 2L supplemental O2, however was weaned off and remained stable
- Overall clinically improved w/o further breathing issues
#Ambulatory Dysfunction
- Seen by PT/OT recommending SNF
#History of orthostatic hypotension
- became orthostatic during an episode of working with PT. Was given fluids, improved, tested again with orthostatic vitals on 12/21 and was NOT orthostatic. Given history of orthostasis and current BP meds, we added Midodrine 5mg BID prn for SBP
<120mmHg
- Recommend holding Metoprolol XL for SBP <120mmHg
#Stage 1 buttock pressure injury
- present on admission, dry and intact
- stable, barrier ointment provided by wound care
The patient's chronic medical conditions were managed as follows:
#Chronic Normocytic Anemia - hgb stable during admission. Continued on iron supplements. No need for transfusion.
#Paroxysmal atrial fibrillation w/ ICD -c/w amiodarone, no abnormal rhythms identified during admission.
#CAD s/p CABG - c/w aspirin, statin, metoprolol
#Essential hypertension - pressures stable, will c/t monitor
#Parkinson's disease - continued on carbidopa levodopa
#Anxiety/depression - continued on buspar
#BPH - continued on finasteride
#Hypothyroidism - continued on levothyroxine
#Constipation - continued on home bowel regimen
#Insomnia - continued on ramelteon
Important imaging findings :
CR Chest - 2 Views:
FINDINGS:
There is bibasilar opacification at least suspicious for pneumonia. The the heart is at least top normal in size. Pulmonary vascularity is within the limits of normal. There is no pneumothorax or significant pleural effusion. Left-sided cardiac
device is seen with intact wires. Sternal wires and surgical clips are noted.
IMPRESSION:
Bibasilar opacification at least suspicious for pneumonia.
Procedure findings :
None.
Discharge Plan
-
Patient Disposition: Penitentiary[facility]SNF
Discharge Diagnosis/Procedures: Community Acquired Pneumonia
Ambulatory Dysfunction
Orthostatic Hypotension
Condition: Good
Diet: Low Cholesterol and Low Sodium
Activity: With assistance and As tolerated
Driving Restrictions: As prior to admission
Referrals:
Nessa Garner CRNP [Family Provider] -
Additional Discharge Medication Instructions: ADDED Midodrine 5mg tablet BID prn for SBP <120mmHg for h/o Orthostatic Hypotension
MODIFIED Metoprolol Succinate 25mg QD with HOLDING PARAMETERS for SBP <120mmg
Prescriptions:
New
midodrine 5 mg tablet
5 mg PO BID PRN (Reason: Orthostatic Hypotension) 30 Days Qty: 30 4RF
Rx Instructions:
GIVE FOR systolic blood pressure less than 120 mmHg
Continued
ferrous sulfate 325 mg (65 mg iron) Tablet
325 mg PO DAILY
aspirin 81 mg Tablet,Chewable
81 mg PO DAILY
finasteride 5 mg Tablet
5 mg PO DAILY
atorvastatin 80 mg tablet
40 mg PO QPM
amiodarone 200 mg tablet
200 mg PO DAILY
levothyroxine 25 mcg tablet
25 mcg PO DAILY
buspirone 5 mg Tablet
5 mg PO BID
sennosides 8.6 mg Tablet
17.2 mg PO DAILY
acetaminophen [Tylenol] 325 mg Tablet
650 mg PO Q6HPRN PRN (Reason: mild pain)
albuterol sulfate 2.5 mg /3 mL (0.083 %) Solution For Nebulization
2.5 mg INHALATION R QID
polyethylene glycol 3350 [Miralax] 17 gram Powder In Packet
17 g PO DAILY
benzonatate 200 mg Capsule
200 mg PO TIDPRN PRN (Reason: cough)
ondansetron HCl 4 mg Tablet
4 mg PO Q8HPRN PRN (Reason: nausea)
docusate sodium [Colace] 100 mg Capsule
100 mg PO BIDPRN PRN (Reason: constipation)
carbidopa-levodopa 25-100 mg Tablet
2 tab PO BID
guaifenesin 400 mg Tablet
400 mg PO TID
calcium carbonate-vitamin D3 [Calcium 600 + D(3)] 600 mg-5 mcg (200 unit) Capsule
1 cap PO BID
ramelteon 8 mg Tablet
8 mg PO HS
metoprolol succinate 25 mg tablet extended release 24 hr
25 mg PO DAILY 30 Days Qty: 30 4RF
Rx Instructions:
HOLD FOR Systolic Blood Pressure less than 120mmHg
Discharge Orders:
Discharge Patient (As Directed); Ordered 12/21/24
Ordered By: Danny Chase
Discharge Date and Time
Discharge Date/Time: 12/21/24 16:49
Print Language: BRUNEIAN

Documented by User: Enzo Garcia MD 12/21/24 23:32
Discharge Summary
Discharge Data
Date of Admission: 12/14/24
Date of Discharge: 12/21/24
Discharge Plan
-
Patient Disposition: Penitentiary/SNF
Discharge Diagnosis/Procedures: Community Acquired Pneumonia
Ambulatory Dysfunction
Orthostatic Hypotension
Condition: Good
Diet: Low Cholesterol and Low Sodium
Activity: With assistance and As tolerated
Driving Restrictions: As prior to admission
Referrals:
Nessa Garner CRNP [Family Provider] -
Additional Discharge Medication Instructions: ADDED Midodrine 5mg tablet BID prn for SBP <120mmHg for h/o Orthostatic Hypotension
MODIFIED Metoprolol Succinate 25mg QD with HOLDING PARAMETERS for SBP <120mmg
Prescriptions:
New
midodrine 5 mg tablet
5 mg PO BID PRN (Reason: Orthostatic Hypotension) 30 Days Qty: 30 4RF
Rx Instructions:
GIVE FOR systolic blood pressure less than 120 mmHg
Continued
ferrous sulfate 325 mg (65 mg iron) Tablet
325 mg PO DAILY
aspirin 81 mg Tablet,Chewable
81 mg PO DAILY
finasteride 5 mg Tablet
5 mg PO DAILY
atorvastatin 80 mg tablet
40 mg PO QPM
amiodarone 200 mg tablet
200 mg PO DAILY
levothyroxine 25 mcg tablet
25 mcg PO DAILY
buspirone 5 mg Tablet
5 mg PO BID
sennosides 8.6 mg Tablet
17.2 mg PO DAILY
acetaminophen [Tylenol] 325 mg Tablet
650 mg PO Q6HPRN PRN (Reason: mild pain)
albuterol sulfate 2.5 mg /3 mL (0.083 %) Solution For Nebulization
2.5 mg INHALATION R QID
polyethylene glycol 3350 [Miralax] 17 gram Powder In Packet
17 g PO DAILY
benzonatate 200 mg Capsule
200 mg PO TIDPRN PRN (Reason: cough)
ondansetron HCl 4 mg Tablet
4 mg PO Q8HPRN PRN (Reason: nausea)
docusate sodium [Colace] 100 mg Capsule
100 mg PO BIDPRN PRN (Reason: constipation)
carbidopa-levodopa 25-100 mg Tablet
2 tab PO BID
guaifenesin 400 mg Tablet
400 mg PO TID
calcium carbonate-vitamin D3 [Calcium 600 + D(3)] 600 mg-5 mcg (200 unit) Capsule
1 cap PO BID
ramelteon 8 mg Tablet
8 mg PO HS
metoprolol succinate 25 mg tablet extended release 24 hr
25 mg PO DAILY 30 Days Qty: 30 4RF
Rx Instructions:
HOLD FOR Systolic Blood Pressure less than 120mmHg
Discharge Orders:
Discharge Patient (As Directed); Ordered 12/21/24
Ordered By: Danny Chase
Discharge Date and Time
Discharge Date/Time: 12/21/24 16:49
Print Language: BRUNEIAN
[2024-12-21 15:00] VITALS: BP 102/49
== END 2024-12-21 16:49 | DRG 195 ==
LOC: 3 WEST ACU 12:44
PROVIDERS: ADMITTING PHYSICIAN Hospitalist; ATTENDING PHYSICIAN Family Medicine; EMERGENCY PHYSICIAN Emergency Medicine; FAMILY PHYSICIAN Nurse Practitioner Family
DX: J18.9 Pneumonia, unspecified organism (principal); D64.9 Anemia, unspecified; I48.0 Paroxysmal atrial fibrillation; I25.10 Atherosclerotic heart disease of native coronary artery without angina pectoris; G20.A1 Parkinson's disease without dyskinesia, without mention of fluctuations; F32.A Depression, unspecified; F41.9 Anxiety disorder, unspecified; N40.0 Benign prostatic hyperplasia without lower urinary tract symptoms; E03.9 Hypothyroidism, unspecified; K59.00 Constipation, unspecified; G47.00 Insomnia, unspecified; Z66 Do not resuscitate; L89.151 Pressure ulcer of sacral region, stage 1; L89.301 Pressure ulcer of unspecified buttock, stage 1; I95.1 Orthostatic hypotension; Z79.899 Other long term (current) drug therapy; Z79.82 Long term (current) use of aspirin; Z95.1 Presence of aortocoronary bypass graft; Z11.52 Encounter for screening for COVID-19; I10 Essential (primary) hypertension; Z85.038 Personal history of other malignant neoplasm of large intestine
CPT/HCPCS: 71046; 80053; 83880; 85025; 87040; 87070; 87502; 87811; 93005; 94640; 96374; 97116; 97163; 97167; 97530; 97535; 99285

== ENCOUNTER → 2024-12-29 10:06 | Outpatient (REF) | payer OTHER, MEDICARE, BC, SELFPAY ==
[2024-12-29 10:34] LABS: Hematocrit 29.3 % (39.0-52.0); Hemoglobin 9.1 g/dL (13.0-18.0); Mean Corp Hgb Conc. 31.1 g/dL (33.0-37.0); Mean Corpuscular Hgb 29.1 pg (27.0-31.0); Mean Corpuscular Volume 93.6 fL (80.0-94.0); Mean Platelet Volume 9.8 fL (7.4-10.4); Platelet Count 264 10^3/uL (130-400); Red Blood Cell Count 3.13 10^6/uL (4.70-6.10); Red Cell Dist. Width 15.1 % (11.5-14.5); White Blood Cell Count 5.4 10^3/uL (4.8-10.8)
[2024-12-29 11:53] LABS: ALT (SGPT) 82 U/L (0-50); AST (SGOT) 146 U/L (17-59); Albumin 2.3 g/dl (3.5-5.0); Alkaline Phosphatase 75 U/L (38-126); Blood Urea Nitrogen 19 mg/dl (9-20); Calcium 8.4 mg/dl (8.4-10.2); Carbon Dioxide 28 mmol/L (22-30); Chloride 107 mmol/L (98-107); Glucose 105 mg/dl (70-99); HDL Cholesterol 28 mg/dl; LDL Cholesterol, Calculated 25 mg/dl; Magnesium 2.1 mg/dl (1.6-2.3); Potassium 4.2 mmol/L (3.5-5.1); Sodium 139 mmol/L (135-145); Total Bilirubin 0.5 mg/dl (0.2-1.3); Total Cholesterol 70 mg/dl (50-199); Total Protein 4.5 g/dl (6.3-8.2); Triglyceride 85 mg/dl (10-149); Very Low Density Lipoprotein 17 mg/dl (0-30); eGFR > 60.00
[2024-12-29 11:59] LABS: Free T4 1.93 ng/dl (0.78-2.19)
[2024-12-29 12:13] LABS: TSH 1.81 uIU/ml (0.47-4.68)
== END ==
LOC: OLABN 10:06
PROVIDERS: ATTENDING PHYSICIAN Student in an Organized Health Care Education/Training Program
DX: I48.20 Chronic atrial fibrillation, unspecified (principal); I95.1 Orthostatic hypotension; E78.5 Hyperlipidemia, unspecified; E03.9 Hypothyroidism, unspecified; I10 Essential (primary) hypertension
CPT/HCPCS: 36415; 80053; 80061; 83735; 84439; 84443; 85027

== ENCOUNTER → 2025-01-08 07:37 | Outpatient (REF) | payer OTHER, MEDICARE, BC, SELFPAY ==
[2025-01-08 10:07] LABS: ALT (SGPT) 40 U/L (0-50); AST (SGOT) 79 U/L (17-59); Albumin 2.2 g/dl (3.5-5.0); Alkaline Phosphatase 80 U/L (38-126); Blood Urea Nitrogen 15 mg/dl (9-20); Calcium 8.6 mg/dl (8.4-10.2); Carbon Dioxide 26 mmol/L (22-30); Chloride 107 mmol/L (98-107); Glucose 93 mg/dl (70-99); Potassium 4.4 mmol/L (3.5-5.1); Sodium 136 mmol/L (135-145); Total Bilirubin 0.5 mg/dl (0.2-1.3); Total Protein 4.6 g/dl (6.3-8.2); eGFR > 60.00
[2025-01-08 10:16] LABS: % Basophils 0.8 % (0-2); % Eosinophils 5.8 % (0-6); % Immature Granulocytes 0.2 % (0-0.5); % Lymphocytes 16.5 % (20.5-51.1); % Monocytes 10.1 % (1.7-9.3); % Neutrophils 66.6 % (42.2-75.2); Absolute Eosinophils 0.3 10^3/uL (0-0.7); Absolute Lymphocytes 0.9 10^3/uL (1.2-3.4); Absolute Monocytes 0.5 10^3/uL (0.1-0.6); Absolute Neutrophils 3.6 10^3/uL (1.4-6.5); Hematocrit 27.9 % (39.0-52.0); Mean Corp Hgb Conc. 32.3 g/dL (33.0-37.0); Mean Corpuscular Hgb 28.6 pg (27.0-31.0); Mean Corpuscular Volume 88.6 fL (80.0-94.0); Mean Platelet Volume 9.6 fL (7.4-10.4); Nucleated Red Blood Cells % 0 % (-); Platelet Count 362 10^3/uL (130-400); Red Blood Cell Count 3.15 10^6/uL (4.70-6.10); Red Cell Dist. Width 15.5 % (11.5-14.5); White Blood Cell Count 5.3 10^3/uL (4.8-10.8)
[2025-01-08 11:08] LABS: Urine Albumin 1+ (Neg - Trace); Urine Bilirubin Negative (Negative); Urine Character Cloudy (Clear); Urine Color Yellow; Urine Glucose Negative (Negative); Urine Ketone Negative (Negative); Urine Leukocyte Negative (Negative); Urine Nitrite Negative (Negative); Urine Occult Blood 4+ (Negative); Urine Urobilinogen Negative (Neg - 1+)
[2025-01-08 11:36] LABS: Urine Amorphous Seen; Urine Red Blood Cell 30-40 /HPF (0-2); Urine Squamous Cell 0-2 /LPF (Few); Urine White Cell 0-2 /HPF (0-5)
[2025-01-08 11:37] LABS: Urine Bacteria Few (Negative)
== END ==
LOC: OLABN 07:37
PROVIDERS: ATTENDING PHYSICIAN Student in an Organized Health Care Education/Training Program
DX: I48.20 Chronic atrial fibrillation, unspecified (principal); R35.0 Frequency of micturition
CPT/HCPCS: 36415; 80053; 81003; 81015; 85025; 87086; 87147; 87186

== ENCOUNTER → 2025-01-22 11:28 | Outpatient (REF) | payer OTHER, MEDICARE, BC, SELFPAY ==
[2025-01-22 11:56] LABS: % Basophils 1.3 % (0-2); % Eosinophils 10.9 % (0-6); % Immature Granulocytes 0.1 % (0-0.5); % Lymphocytes 16.3 % (20.5-51.1); % Neutrophils 62.4 % (42.2-75.2); Absolute Basophils 0.1 10^3/uL (0-0.2); Absolute Eosinophils 0.8 10^3/uL (0-0.7); Absolute Lymphocytes 1.1 10^3/uL (1.2-3.4); Absolute Monocytes 0.6 10^3/uL (0.1-0.6); Absolute Neutrophils 4.4 10^3/uL (1.4-6.5); Hematocrit 31.4 % (39.0-52.0); Hemoglobin 9.9 g/dL (13.0-18.0); Mean Corp Hgb Conc. 31.5 g/dL (33.0-37.0); Mean Corpuscular Hgb 28.7 pg (27.0-31.0); Mean Platelet Volume 10.7 fL (7.4-10.4); Nucleated Red Blood Cells % 0 % (-); Platelet Count 227 10^3/uL (130-400); Red Blood Cell Count 3.45 10^6/uL (4.70-6.10); Red Cell Dist. Width 16.7 % (11.5-14.5)
[2025-01-22 12:04] LABS: ALT (SGPT) 27 U/L (0-50); AST (SGOT) 19 U/L (17-59); Albumin 3.1 g/dl (3.5-5.0); Alkaline Phosphatase 70 U/L (38-126); Blood Urea Nitrogen 13 mg/dl (9-20); Calcium 9.4 mg/dl (8.4-10.2); Carbon Dioxide 27 mmol/L (22-30); Chloride 110 mmol/L (98-107); Glucose 94 mg/dl (70-99); Iron 41 ug/dl (49-181); Magnesium 2.4 mg/dl (1.6-2.3); Potassium 4.3 mmol/L (3.5-5.1); Sodium 139 mmol/L (135-145); Total Bilirubin 0.4 mg/dl (0.2-1.3); Total Protein 5.6 g/dl (6.3-8.2); eGFR > 60.00
[2025-01-22 12:21] LABS: Free T4 1.56 ng/dl (0.78-2.19)
[2025-01-22 12:35] LABS: TSH 3.14 uIU/ml (0.47-4.68)
[2025-01-22 16:01] LABS: Urine Albumin 1+ (Neg - Trace); Urine Bilirubin Negative (Negative); Urine Character Clear (Clear); Urine Color Amber; Urine Glucose Negative (Negative); Urine Ketone Negative (Negative); Urine Leukocyte Negative (Negative); Urine Nitrite Negative (Negative); Urine Occult Blood Negative (Negative); Urine Specific Gravity 1.015 (<1.030); Urine Urobilinogen Negative (Neg - 1+)
[2025-01-22 16:42] LABS: Urine Red Blood Cell 0-2 /HPF (0-2); Urine Squamous Cell 0-2 /LPF (Few); Urine White Cell 0-2 /HPF (0-5)
== END ==
LOC: OLABN 11:28
PROVIDERS: ATTENDING PHYSICIAN Student in an Organized Health Care Education/Training Program
DX: I48.20 Chronic atrial fibrillation, unspecified (principal); E03.9 Hypothyroidism, unspecified; I95.1 Orthostatic hypotension; R35.0 Frequency of micturition
CPT/HCPCS: 36415; 80053; 81003; 81015; 83540; 83735; 84439; 84443; 85025; 87086

== ENCOUNTER → 2025-02-14 05:25 | Outpatient (REF) | payer OTHER, MEDICARE, BC, SELFPAY ==
[2025-02-14 14:59] LABS: Urine Albumin Negative (Neg - Trace); Urine Bilirubin Negative (Negative); Urine Character Clear (Clear); Urine Color Yellow; Urine Glucose Negative (Negative); Urine Ketone Negative (Negative); Urine Leukocyte Negative (Negative); Urine Nitrite Negative (Negative); Urine Occult Blood Negative (Negative); Urine Specific Gravity 1.015 (<1.030); Urine Urobilinogen Negative (Neg - 1+)
[2025-02-14 15:04] LABS: % Basophils 1.3 % (0-2); % Eosinophils 8.8 % (0-6); % Lymphocytes 23.5 % (20.5-51.1); % Monocytes 9.5 % (1.7-9.3); % Neutrophils 56.9 % (42.2-75.2); Absolute Basophils 0.1 10^3/uL (0-0.2); Absolute Eosinophils 0.5 10^3/uL (0-0.7); Absolute Lymphocytes 1.3 10^3/uL (1.2-3.4); Absolute Monocytes 0.5 10^3/uL (0.1-0.6); Absolute Neutrophils 3.1 10^3/uL (1.4-6.5); Hematocrit 35.6 % (39.0-52.0); Hemoglobin 11.1 g/dL (13.0-18.0); Mean Corp Hgb Conc. 31.2 g/dL (33.0-37.0); Mean Corpuscular Hgb 29.8 pg (27.0-31.0); Mean Corpuscular Volume 95.4 fL (80.0-94.0); Mean Platelet Volume 10.6 fL (7.4-10.4); Nucleated Red Blood Cells % 0 % (-); Platelet Count 181 10^3/uL (130-400); Red Blood Cell Count 3.73 10^6/uL (4.70-6.10); Red Cell Dist. Width 18.1 % (11.5-14.5); White Blood Cell Count 5.5 10^3/uL (4.8-10.8)
[2025-02-14 15:07] LABS: ALT (SGPT) < 10 U/L (0-50); AST (SGOT) 15 U/L (17-59); Albumin 3.5 g/dl (3.5-5.0); Alkaline Phosphatase 59 U/L (38-126); Blood Urea Nitrogen 14 mg/dl (9-20); Calcium 9.5 mg/dl (8.4-10.2); Carbon Dioxide 26 mmol/L (22-30); Chloride 108 mmol/L (98-107); Glucose 91 mg/dl (70-99); Magnesium 2.5 mg/dl (1.6-2.3); Potassium 4.2 mmol/L (3.5-5.1); Sodium 138 mmol/L (135-145); Total Bilirubin 0.5 mg/dl (0.2-1.3); Total Protein 5.7 g/dl (6.3-8.2); eGFR > 60.00
[2025-02-14 15:38] LABS: TSH 4.06 uIU/ml (0.47-4.68)
== END ==
LOC: OLABN 05:25
PROVIDERS: ATTENDING PHYSICIAN Student in an Organized Health Care Education/Training Program
DX: I10 Essential (primary) hypertension (principal); E03.9 Hypothyroidism, unspecified; R30.9 Painful micturition, unspecified
CPT/HCPCS: 36415; 80053; 81003; 83735; 84443; 85025; 87086

== ENCOUNTER → 2025-02-16 11:55 | Outpatient (REF) | payer MEDICARE, BC, SELFPAY ==
[2025-02-16 12:58] LABS: Magnesium 2.4 mg/dl (1.6-2.3)
== END ==
LOC: OLABN 11:55
PROVIDERS: ATTENDING PHYSICIAN Student in an Organized Health Care Education/Training Program
DX: I10 Essential (primary) hypertension (principal)
CPT/HCPCS: 36415; 83735

== ENCOUNTER → 2025-03-02 09:26 | Outpatient (REF) | payer MEDICARE, BC, SELFPAY ==
[2025-03-02 10:56] LABS: Creatine Phosphokinase < 20 U/L (55-170)
[2025-03-02 12:00] LABS: Folate 5.2 ng/ml (2.76-20); Vitamin B12 271 pg/ml (239-931)
== END ==
LOC: OLABN 09:26
PROVIDERS: ATTENDING PHYSICIAN Specialist; FAMILY PHYSICIAN Student in an Organized Health Care Education/Training Program
DX: R53.1 Weakness (principal); D51.8 Other vitamin B12 deficiency anemias
CPT/HCPCS: 36415; 82550; 82607; 82746; 86041

== ENCOUNTER → 2025-04-05 09:36 | Outpatient (REF) | payer MEDICARE, BC, SELFPAY ==
[2025-04-05 10:51] LABS: Depakane 21.0 ug/ml (50.0-120.0)
== END ==
LOC: OLABN 09:36
PROVIDERS: ATTENDING PHYSICIAN Student in an Organized Health Care Education/Training Program
DX: R79.89 Other specified abnormal findings of blood chemistry (principal); Z51.81 Encounter for therapeutic drug level monitoring
CPT/HCPCS: 36415; 80164

== ENCOUNTER → 2025-06-02 11:08 | Outpatient (REF) | payer MEDICARE, BC, SELFPAY ==
[2025-06-02 12:06] LABS: Urine Character Clear (Clear)
[2025-06-02 12:25] LABS: Urine Squamous Cell 0-2 /LPF (Few)
[2025-06-02 12:26] LABS: Urine White Cell 0-2 /HPF (0-5)
[2025-06-02 12:27] LABS: Urine Red Blood Cell None Seen /HPF (0-2)
== END ==
LOC: OLABN 11:08
PROVIDERS: ATTENDING PHYSICIAN Student in an Organized Health Care Education/Training Program
DX: R35.0 Frequency of micturition (principal)
CPT/HCPCS: 81003; 81015; 87086

== ENCOUNTER → 2025-06-04 07:25 | Outpatient (REF) | payer MEDICARE, BC, SELFPAY ==
[2025-06-04 11:02] LABS: ALT (SGPT) 12 U/L (0-50); AST (SGOT) 22 U/L (17-59); Albumin 3.3 g/dl (3.5-5.0); Alkaline Phosphatase 55 U/L (38-126); Blood Urea Nitrogen 19 mg/dl (9-20); Calcium 9.1 mg/dl (8.4-10.2); Carbon Dioxide 29 mmol/L (22-30); Chloride 106 mmol/L (98-107); Glucose 88 mg/dl (70-99); Magnesium 2.1 mg/dl (1.6-2.3); Potassium 4.3 mmol/L (3.5-5.1); Sodium 138 mmol/L (135-145); Total Protein 5.6 g/dl (6.3-8.2); eGFR > 60.00
[2025-06-04 11:19] LABS: Hematocrit 33.3 % (39.0-52.0); Hemoglobin 10.9 g/dL (13.0-18.0); Mean Corp Hgb Conc. 32.7 g/dL (33.0-37.0); Mean Corpuscular Volume 97.1 fL (80.0-94.0); Nucleated Red Blood Cells % 0 % (-); Platelet Count 89 10^3/uL (130-400); Red Cell Dist. Width 13.9 % (11.5-14.5)
== END ==
LOC: OLABN 07:25
PROVIDERS: ATTENDING PHYSICIAN Student in an Organized Health Care Education/Training Program
DX: I95.1 Orthostatic hypotension (principal)
CPT/HCPCS: 36415; 80053; 83735; 85025